=== PATIENT | male | born 1955 | race Caucasian/White ===

== ENCOUNTER 2017-11-08 08:29 | Inpatient (IN) | payer OTHER ==
[~2017-11-08] VITALS: Ht 175.3 cm; Wt 82.8 kg
[2017-11-08] VITALS (52 sets, daily range): BP systolic 83–201; BP diastolic 55–152
--- NOTE | ~2017-11-08 | CNG ---
[facility] [place] [address] CYTO-NONGYN REPORT PROCEDURE Name: BRYAN DURANT Room #: 205-P ADM IN M.R.#: [id number] Admission: 11/08/17 Date of : 51 Discharge: Report #: [id number] Path Case #: [id number] CYTOPATHOLOGY REPORT COLLECTION DATE: 11/22/2017 RECEIVED DATE: 11/26/2017 SUBMITTING PHYS: Dr. Gema Kee OTHER PHYS: Dr. João Israel CLINICAL HISTORY: Cardiac arrest, CPA with ROSC SPECIMEN(S) RECEIVED: A.Pleural fluid * * * * * * * * * * * * FINAL DIAGNOSIS: A. Pleural fluid: Atypical cells present: - Atypical mesothelial cells are present, see comment. COMMENT: Immunohistochemical stains are performed on the cell block with adequate controls. Calretinin highlights the atypical mesothelial cells. TTF-1, Napsin A, and Naman-EP4 are negative. PATHOLOGIST: Bryan Lin M.D. REPORT ELECTRONICALLY SIGNED BY: Bryan Lin M.D. DATE/TIME: 11/28/2017 09:03 * * * * * * * * * * * * GROSS PATHOLOGY: A. Pleural fluid: The specimen is submitted unfixed, labeled "Bryan Durant". Received by the Cytology Department is 17 mL of cloudy red fluid. One ThinPrep slide and a formalin fixed cell block were prepared. (mm 1.2.2018) APPLIANCE LINE ASSEMBLER(S): JUDY Elise([facility] INITIAL CPT CODE(S): A; 15922, 59647, 53937, 11827, 35971, 42178, 62685 Professional services performed by [facility] at [facility] [address] [place] [address] Technical services performed by [facility] at [address] [place] [address], [address], [place] [address]. [facility] [address] [place] [address] CYTO-NONGYN REPORT PROCEDURE Name: BRYAN DURANT Room #: 205-P ADM IN M.R.#: [id number] Admission: 11/08/17 Date of : 51 Discharge: Report #: [id number] Path Case #: [id number] [facility] [address] [place] [address], [address] [place] [address] PHONE: [phone] DIRECTOR: Mikey Alvarez M.D. * * * END OF REPORT * * *
--- NOTE | ~2017-11-08 | HC ---
[facility] [place] [address] CONSULTATION Name: GIBRAN DURANT Room #: 240-[facility] IN M.R.#: [id number] Admission: 11/08/17 Attend Phys: Kaleb Israel DO Discharge: Date of : 51 Report #: [id number] THIS REPORT FOR: //name// CC: João Israel DO DATE OF SERVICE: 11/08/2017 REFERRING PROVIDER: Kaleb Israel DO. REASON FOR CONSULTATION: Respiratory failure. CHIEF COMPLAINT: Status post arrest. HISTORY OF PRESENT ILLNESS: Our group was asked to evaluate the patient in consultation while hospitalized at [facility]. Case discussed with Dr. Gutierrez in the Emergency Department. No family available as they were driving in my initial evaluation and also from discussion with other healthcare providers, a 62-year-old male was apparently at liquor store and said he was not feeling well, collapsed, brought in by EMS after CPR by the outpatient admitting clerk at the store where he arrested, was found to have asystole, subsequently brought in and underwent prolonged resuscitation, subsequently intubated. In the interim, he has had a right IJ triple-lumen catheter inserted, has been on resuscitative care and then subsequently started on hypothermia protocol, noted to have severe lactic acidosis. No preceding event that we are aware of. EKG without findings. Currently, nonresponsive with some extensor posturing, on mechanical ventilatory support. ALLERGIES: None known. PAST MEDICAL HISTORY: 1. Possible alcohol abuse history by report. 2. History of prior spontaneous left pneumothorax with left thoracotomy in 98. 3. Hyperlipidemia. MEDICATIONS: Have included Risperdal and gabapentin in the list available. SOCIAL HISTORY: Unobtainable due to his current status. FAMILY HISTORY: Unobtainable due to his current status. REVIEW OF SYSTEMS: Unobtainable due to his current status. PHYSICAL EXAMINATION: [facility] [address] [place] [address] CONSULTATION Name: GIBRAN DURANT J Room #: 240-P [facility] IN [facility]#: [id number] Admission: 11/08/17 Attend Phys: Kaleb Israel DO Discharge: Date of : 51 Report #: [id number] VITAL SIGNS: Hypothermic, pulse 120s, respiratory rate 26, blood pressure 147/90. GENERAL: This is a middle-aged male, unresponsive on the vent. HEENT: Reveals dilated pupils, endotracheal tube in place. No oropharyngeal lesions noted. LUNGS: Coarse rhonchi. CHEST: Revealed obvious multiple rib fractures, predominantly on the right anteriorly. CARDIOVASCULAR: Regular, tachycardic. No murmurs noted. ABDOMEN: Soft, no masses. EXTREMITIES: Cool. NEUROLOGIC: Dilated pupils, extensor posturing noted, unresponsive. LABORATORY DATA: White blood cell count 12,000, hemoglobin 15, hematocrit 46, platelet count 229. Sodium is 143, potassium 2.7, chloride 106, bicarbonate 18, BUN 13, creatinine 1.7, glucose 127, ALT and AST 125 and 130. Troponin 0.12, albumin 2.5. Initial arterial blood gas after intubation, pH 7.10, pCO2 of 42, pO2 114, bicarbonate 13, lactate was 11.24 on assist control, tidal volume 550, FiO2 of 50%, PEEP of 5. Drug of abuse screen was negative. X-ray reveals left basilar atelectasis or infiltrate. Endotracheal tube in good position. Right triple-lumen IJ catheter in good position. No pneumothorax seen. IMPRESSION: 1. Status post cardiopulmonary arrest, unclear etiology. 2. Hypokalemia. 3. Respiratory failure. 4. Multiple rib fractures noted on exam, likely related to resuscitative care. RECOMMENDATIONS: 1. Hypothermia protocol. 2. Neurology consultation. 3. Cardiology consultation. 4. Bronchodilators. 5. Follow up chest radiograph in a.m. 6. Repeat arterial blood gas. 7. No antibiotics at this time. Nothing for infection noted. 8. Additional recommendations to follow. As mentioned, discussed with Dr. Gutierrez in the Emergency Department and nursing. Total critical care time 35 minutes including any procedures. <ELECTRONICALLY SIGNED> By: Oskar Interiano MD 11/14/17 2316 1356 0107 Oskar Interiano MD /nt
--- NOTE | ~2017-11-08 | EKG ---
[address] [place] [address] ELECTROCARDIOGRAM REPORT Name: GIBRAN DURANT Room #: 240-P ADM IN M.R.#: [id number] Admission: 11/08/17 Attend Phys: Kaleb Israel DO Discharge: Date of : 51 Report #: [id number] THIS REPORT FOR: //name// [facility] ED Test Date: 2017-11-08 Test Time: 08:52:53 Pat Name: GIBRAN DURANT Department: Room: 240 Gender: M Automobile Seat Cover Installer: josé miguel : 1955 Requested By: Gwen Gutierrez Order Number: [id number] MD: Jorge Martinez Measurements Intervals [place] Rate: 116 P: 94 DC: 131 QRS: -68 QRSD: 146 T: 44 QT: 370 QTc: 515 Interpretive Statements Sinus tachycardia RBBB and LAFB Resolution of prior rhythm Electronically Signed On 11-08-2017 13:32:28 DIRECTOR CARD by Jorge Martinez [email or web address] <ELECTRONICALLY SIGNED> By: Jorge Martinez MD 11/08/17 1332 0852 0852 MD EUGENE Lazo
--- NOTE | ~2017-11-08 | EKG ---
[address] [employer] [place] [address] ELECTROCARDIOGRAM REPORT Name: CARLEENGIBRAN Chin Room #: 240-P ADM IN M.R.#: [id number] Admission: 11/08/17 Attend Phys: Kaleb Israel DO Discharge: Date of : 51 Report #: [id number] THIS REPORT FOR: //name// [facility] ED Test Date: 2017-11-08 Test Time: 08:33:45 Pat Name: GIBRAN DURANT Department: Room: 240 Gender: M Bight Maker: josé miguel : 1955 Requested By: Gwen Gutierrez Order Number: [id number] MD: Jorge Martinez Measurements Intervals [place] Rate: 131 P: 99 AR: 205 QRS: 139 QRSD: 178 T: -44 QT: 390 QTc: 576 Interpretive Statements Wide complex tachycardia possible VT vs aberration Electronically Signed On 11-08-2017 13:31:38 DATA WAREHOUSING ENGINEER by Jorge Martinez [email or web address] <ELECTRONICALLY SIGNED> By: Jorge Martinez MD 11/08/17 1331 0833 0833 MD EUGENE Lazo
--- NOTE | ~2017-11-08 | HC ---
[facility] [place] [place] [address] CONSULTATION Name: GIBRAN DURANT Room #: 240-P [facility] IN ..#: [id number] Admission: 11/08/17 Attend Phys: Kaleb Israel DO Discharge: Date of : 53 Report #: [id number] THIS REPORT FOR: //name// CC: João Israel DATE OF SERVICE: 11/15/2017 HISTORY OF PRESENT ILLNESS: The patient is a 62-year-old white male, who had an out of hospital cardiac arrest while at a liquor store. He fell to the floor. He had CPR for 10 minutes initially before EMS arrived, he was noted to be in asystole. Apparently, he had chest compressions for another 35 minutes. He was defibrillated x 5. He was noted to be in V-fib for part of the time. He was evaluated and underwent an urgent coronary artery bypass graft x 1 on 11/13. He has been seen by Neurology and diagnosed with hypoxic encephalopathy. There is a question of Etoh withdrawal. He also was noted to have aspiration pneumonia, acute respiratory failure, acute renal insufficiency, electrolyte abnormalities, cardiomyopathy, insomnia with anxiety. We are seeing him in rehabilitation medicine consultation. PAST MEDICAL HISTORY: Includes spontaneous pneumothorax with left thoracotomy 07/27/1998, history of gout, elevated cholesterol, diverticulitis. HABITS: No history of tobacco or alcohol abuse. MEDICATIONS: Please see the full medication listing. ALLERGIES: No known drug allergies. SOCIAL HISTORY: Lives in a house, 2 floors with the basement. There are some steps to get in. He has 3 children that are out of town. He has some sisters that live in the area; however, there is a daughter who is a nurse, who lives out of town that is here visiting. REVIEW OF SYSTEMS: Did not offer any current complaints of chest pain, shortness of breath, or abdominal discomfort. PHYSICAL EXAMINATION: GENERAL: The patient is a 62-year-old white male, seen in the intensive care unit. He is appearing somewhat groggy. VITAL SIGNS: Temperature 97.3, pulse is 143, respirations 26, blood pressure 156/96. NEUROLOGIC: He could tell me the year and the month. He was incorrect regarding, which hospital he was at. He was 1/3 at 3 minutes as far as short term memory. Follows basic commands without difficulty, but he has a definite delay. Facies are symmetric. [facility] [address] [place] [address] CONSULTATION Name: GIBRAN DURANT J Room #: 240-P [facility] IN .R.#: [id number] Admission: 11/08/17 Attend Phys: Kaleb Israel DO Discharge: Date of : 51 Report #: [id number] EXTREMITIES: Functional range of motion of both upper extremities with strength grade 4-/5. DTRs are trace to 1. Lower extremities functional range of motion with strength grade 4-/5. DTRs are trace to 1. ASSESSMENT: A 62-year-old white male with the following problem list: 1. Hypoxic encephalopathy. 2. Out of hospital cardiac arrest. 3. Urgent coronary artery bypass grafting x 1 on 11/13. 4. Acute renal insufficiency. 5. Cardiomyopathy. 6. Arrhythmia, stable. 7. Insomnia with anxiety. 8. Dysphagia, currently moderate in severity on honey thickened liquids. 9. Aspiration pneumonia. PLAN: Therapies are evaluating. He certainly will likely warrant an acute in-hospital inpatient rehabilitation stay as he further medically stabilizes and is ready to move out of the Intensive Care Unit. Discussion was held with the patient's daughter regarding the rehabilitation needs. We will follow along with you regarding his rehab therapy issues as he further medically stabilizes. <ELECTRONICALLY SIGNED> By: Paul Delgado MD 11/21/17 1643 1230 1510 Paul Delgado MD /[facility]
--- NOTE | ~2017-11-08 | EKG ---
[place] [address] [address] [facility] [place] [address] ELECTROCARDIOGRAM REPORT Name: GIBRAN DURANT Room #: 240-P ADM IN M.R.#: [id number] Admission: 11/08/17 Attend Phys: Kaleb Israel DO Discharge: Date of : 51 Report #: [id number] THIS REPORT FOR: //name// [facility] Test Date: 2017-11-10 Test Time: 01:19:56 Pat Name: GIBRAN DURANT Department: Room: 240 P Gender: M Coordinator Of Placement: geronimo : 1955 Requested By: Ranjan Singh Order Number: [id number] MD: Jorge Martinez Measurements Intervals [place] Rate: 65 P: 25 OR: 225 QRS: -50 QRSD: 104 T: 190 QT: 533 QTc: 555 Interpretive Statements Sinus rhythm Paired ventricular premature complexes Prolonged OR interval Left anterior fascicular block Abnrm T, consider ischemia, anterolateral lds Prolonged QT interval Compared to ECG 11/09/2017 08:30:42 Ventricular premature complex(es) now present First degree AV block now present Possible ischemia now present Sinus bradycardia no longer present T-wave abnormality no longer present Electronically Signed On 11-10-2017 23:36:42 HEALTH CENTER ASSOCIATE by Jorge Martinez [email or web address] <ELECTRONICALLY SIGNED> By: Jorge Martinez MD 11/10/17 2336 8 8 Jorge Martinez MD /EPI
--- NOTE | ~2017-11-08 | EKG ---
[address] [place] [address] ELECTROCARDIOGRAM REPORT Name: GIBRAN DURANT Room #: 240-P ADM IN M.R.#: [id number] Admission: 11/08/17 Attend Phys: Kaleb Israel DO Discharge: Date of : 51 Report #: [id number] THIS REPORT FOR: //name// [facility] Test Date: 2017-11-10 Test Time: 07:44:44 Pat Name: GIBRAN DURANT Department: Room: 240 P Gender: M Phonograph Needle Tip Maker: DWAINE : 1955 Requested By: Ranjan Singh Order Number: [id number] MD: Jorge Martinez Measurements Intervals [place] Rate: 88 P: -16 MN: 217 QRS: -45 QRSD: 98 T: 160 QT: 490 QTc: 593 Interpretive Statements Sinus rhythm Borderline prolonged MN interval Left anterior fascicular block Abnormal T, consider ischemia, lateral leads Prolonged QT interval Compared to ECG 11/09/2017 08:30:42 Possible ischemia now present Sinus bradycardia no longer present T-wave abnormality still present Electronically Signed On 11-10-2017 23:37:57 RN ANESTHETIST by Jorge Martinez [email or web address] <ELECTRONICALLY SIGNED> By: Jorge Martinez MD 11/10/17 2337 0744 0744 Jorge Martinez MD /EPI
--- NOTE | ~2017-11-08 | HC ---
[facility] [place] [address] CONSULTATION Name: GIBRAN DURANT Room #: 240-P [facility] IN M.R.#: [id number] Admission: 11/08/17 Attend Phys: Kaleb Israel DO Discharge: Date of : 53 Report #: [id number] THIS REPORT FOR: //name// CC: João Israel TYPE OF REPORT: Infectious diseases consultation. REASON FOR CONSULTATION: I was asked to evaluate concerning post out of hospital arrest and respiratory failure. HISTORY OF PRESENT ILLNESS: The patient was a 62-year old with known alcohol abuse, who was at the liquor store when he fell to the ground with a witnessed arrest. Bystander CPR for 10 minutes followed by EMS resuscitative measures in the field. Asystole followed by AFib. Now on amiodarone and Levophed drip. He is intubated on cooling protocol. No further details available at this time. ALLERGIES: None known. MEDICATIONS: Reported prior to his admission were Ativan, Ambien, simvastatin, escitalopram, Cialis, p.r.n. baclofen and Belsomra daily. PAST MEDICAL HISTORY: Tonsillectomy, spontaneous pneumothorax, gout, hyperlipidemia, diverticulitis and colon polypectomy. FAMILY HISTORY: Noncontributory. SOCIAL HISTORY: Nonsmoker. REVIEW OF SYSTEMS: The patient is unable to give any details for review of systems. PHYSICAL EXAMINATION: VITAL SIGNS: He is hypothermic, on hypothermic protocol. Pulse 121, blood pressure 164/91, CVP 21 and intubated orally on the ventilator. IVs unremarkable. He had a left pretibial intraosseous IV placed. He was shivering. HEENT: Spontaneous eye openings. Pupils were dilated, minimally reactive to light. NECK: Supple. LUNGS: Clear anterolaterally. HEART: Regular. ABDOMEN: Soft and nontender. GENITOURINARY: External genitalia unremarkable with indwelling Hawkins catheter. EXTREMITIES: Unremarkable. LABORATORY STUDIES: Sodium 143, potassium 2.7, bicarbonate [address] [address] CONSULTATION Name: GIBRAN DURANT Room #: 240-P [facility] IN ..#: [id number] Admission: 11/08/17 Attend Phys: Kaleb Israel DO Discharge: Date of : 53 Report #: [id number] 1.7. AST 130, bilirubin 0.6, ALT 125, alkaline phosphatase 73 and lactate 12.8. Troponin 0.12. BNP 47. Drug screen negative. Hemoglobin 14.7; white count 12.3 and platelet count 229,000. Differential unremarkable. Urinalysis unremarkable. ABG on arrival: FiO2 of 50%, his pO2 was 114, CO2 41, pH 7.1 with a bicarbonate 13.9 and lactate 11.2. RADIOLOGICAL DATA: Chest x-ray, right IJ central line in place, NG tube in place, patchy infiltrates across the right upper lobe region, left lower lobe atelectasis and infiltrate. IMPRESSION: Out of hospital cardiac arrest. Suspect aspiration pneumonitis. No other history to suggest infection predating this. In addition, has evidence of hepatitis, which may be ischemic in nature from hypoperfusion along with acute renal failure and ongoing lactic acidosis. RECOMMENDATIONS: Recommend continuing antibiotic coverage for out of hospital aspiration, fluid resuscitation and post-code cold treatment. Cardiology followup. <ELECTRONICALLY SIGNED> By: Bi Delatorre MD 11/09/17 0929 1400 2142 Bi Delatorre MD /nt
--- NOTE | ~2017-11-08 | EEG ---
[facility] [address] [place] [address] ELECTROENCEPHALOGRAM Name: GIBRAN DURANT Room #: 240-P [facility] IN M.R.#: [id number] Admission: 11/08/17 Attend Phys: Kaleb Israel DO Discharge: Date of : 53 Report #: [id number] THIS REPORT FOR: //name// CC: João Israel DATE OF SERVICE: 11/09/2017 This patient is being evaluated post cardiac arrest. EEG was done by placing the electrodes by standard 10-20 system of electrode placement. Both referential and sequential montages were used for recording. Background activity in this patient's EEG is about 7-8 Hz and 40 microvolt. This background activity is intermixed with moderate amount of theta range slowing on both sides. A lot of artifact is present as the EEG is portable. No active epileptiform activity was noticed. IMPRESSION: Moderately abnormal electroencephalogram because it is intermixed with theta range slowing on both sides. That is a nonspecific abnormality, which can occur with encephalopathy, effect of psychotropic medication, dementia, etc. No active epileptiform activity was noticed during this record. Thank you very much for this referral. <ELECTRONICALLY SIGNED> By: Satinder Paris MD 11/13/17 1349 0920 0958 Satinder Paris MD /nt
--- NOTE | ~2017-11-08 | HC ---
[facility] [place] [address] CONSULTATION Name: GIBRAN DURANT Room #: 240-P [facility] IN .R.#: [id number] Admission: 11/08/17 Attend Phys: Kaleb Israel DO Discharge: Date of : 51 Report #: [id number] THIS REPORT FOR: //name// CC: João Israel DATE OF SERVICE: 11/08/2017 HISTORY OF PRESENT ILLNESS: This is a 62-year-old male patient whose consultation was kindly requested by Dr. Oliva to prognosticate the patient from hypoxic encephalopathy. I talked to the patient's daughter and it looks like this patient had a cardiorespiratory arrest outside the hospital in a liquor store. It looks like there was a prolonged CPR, but finally they did get the pulse back. This patient has been mostly unresponsive. He is presently on cooling protocol. He was briefly seen today and will be seen again tomorrow in more detail. REVIEW OF SYSTEMS: Positive for cardiac arrest. According to the family, he was healthy before and did not have any stroke. He does have trouble with alcohol and did have withdrawal, but that was several years ago. He lives alone, so they did not know how much alcohol he used to drink. This was his relevant 14-point review of system. PAST MEDICAL HISTORY: Negative for any stroke. SOCIAL HISTORY: He does drink alcohol, but it is not clear how much he does. PHYSICAL EXAMINATION: The patient's examination was pretty limited. He is unresponsive without any response of any kind, is intubated. His heart is stable. He is reasonably well-built individual who does not have any dysmorphic features of eyes, ears and face. His pupils are dilated and fixed, but he is getting pressors according to the nurses. IMPRESSION: This patient appeared to have hypoxic encephalopathy. How much is reversible and how much is not reversible is not clear at the moment. I discussed with the family that we need to run testing on head and we will start tomorrow when he is off the cooling protocol. He also needs a CT scan of the head, both to look for any hypoxic damage and to exclude any possibility of rare CHANNEL WORKER etiology, which can also cause cardiac arrest. I did discuss it with the family, but we will discuss further after the workup is available. [address] [address] CONSULTATION Name: GIBRAN DURANT Room #: 240-P [facility] IN M.R.#: [id number] Admission: 11/08/17 Attend Phys: Kaleb Israel DO Discharge: Date of : 51 Report #: [id number] Thank you very much for this referral and if you have any questions, please feel free to contact me. <ELECTRONICALLY SIGNED> By: Satinder Paris MD 11/09/172 2109 0021 Satinder Paris MD /nt
--- NOTE | ~2017-11-08 | CATHLAB ---
[facility] [address] [place] [address] INVASIVE PROCEDURE REPORT Name: GIBRAN DURANT Room #: 240-P [facility] IN ..#: [id number] Admission: 11/08/17 Attend Phys: Kaleb Israel, Discharge: Date of : 51 Date of Service: 11/22/17 1323 Report #: [id number] THIS REPORT FOR: //name// ADDENDUM APPROVED REPORT Patient Details Patient Status: Out-Patient Room #: The patient is a 62 year-old male Event Personnel Chi Townsend Weatherization Coordinator, Wanda Thomas CVT Monitor, Dvaid Littlejohn RN, Paul Patel Scrub Procedures Performed Left Heart Cath w/or w/o Coronaries [id number] [facility] supervision of conscious sedation Procedure Narrative The Right Groin^ was infiltrated with subcutaneous anesthesia. A PINNACLE 6FR Sheath #[id number] sheath was inserted into the RFA 6FR^. Coronary angiography was performed using coronary diagnostic catheters. The right coronary system was accessed and visualized with a JR4 catheter. The left coronary system was accessed and visualized with a JL4 catheter. The left ventricle was accessed and visualized with a PIGTAIL catheter. Left ventricular/Aortic Valve gradient assessed via catheter pullback. Left ventriculogram was performed in 30 degree projection. Closure device was deployed with a 6 Fr MYNXGRIP 6/7F #[id number]. The patient tolerated the procedure well and there were no complications associated with the procedure. There was no hematoma. Intraoperative Conscious Sedation Sedation start time: 7.38 Case end Time: 7.50 Fluoro Time: 1.20 minutes Dose: DAP 2322.97 cGycm2 300 mGy Contrast Type and Amount: Omnipaque 85 ml Coronary Angiography The patient's coronary anatomy is right dominant. Diagnostic Cath Left Main Moderate caliber vessel of normal origin bifurcates left anterior descending left circumflex mild luminal irregularities are noted but no flow-limiting lesions [facility] [address] [place] [address] INVASIVE PROCEDURE REPORT Name: GIBRAN DURANT Room #: 240-P [facility] IN ..#: [id number] Admission: 11/08/17 Attend Phys: Kaleb Israel, Discharge: Date of : 51 Date of Service: 11/22/17 1323 Report #: [id number] LAD Moderate caliber type III vessel which has a high-grade 90% ostial lesion which arises at an angle from the left main. The vessel reconstitutes itself free of high-grade disease as it tapers to the apex terminated the posterior aspect of the inferoapical wall septal diagonal branches arising in its course Diagonal 1 Small-caliber nonobstructive LAD vessel Circumflex Moderate to large caliber vessel normal origin with luminal irregularities present. First marginal branch is small caliber vessel free of high-grade disease the circumflex proper then courses posteriorly terminating 2 posterior lateral branches free of high-grade disease OM1 Small-caliber vessel free of disease OM2 Posterior wall branches of moderate caliber without significant high-grade lesions. Tortuous course OM3 Sural wall branch of moderate caliber without significant high-grade lesions having a tortuous course Right Coronary Moderate caliber vessel of normal origin. At the acute margin has a 30-40% irregularity. Continues posteriorly giving rise to posterior descending artery and posterolateral wall branches R PDA Small-caliber vessel without significant high-grade lesions noted RPLV Small to moderate caliber vessel bifurcating into the 2 posterior wall branches and what appears to be a possible AV medina branch Left Ventriculography Left Ventriculography was not performed. Hemodynamics The aortic pressure is 162/90 mmHg with a mean of 114 mmHg. The left ventricular pressure is 144/25 mmHg with a mean of mmHg. The left ventricular end diastolic pressure is 43 mmHg. Conclusion 1. Coronary disease severe single-vessel 2. Abnormal hemodynamics with elevated left ventricular end-diastolic pressures Recommendations CABG Medications Administered Aspirin (any) [facility] [address] [address] INVASIVE PROCEDURE REPORT Name: GIBRAN DURANT Room #: 240-P [facility] IN ..#: [id number] Admission: 11/08/17 Attend Phys: Kaleb Israel, Discharge: Date of : 51 Date of Service: 11/22/17 1323 Report #: [id number] Beta Charlie (any) Statin (any) <ELECTRONICALLY SIGNED> By: Chi Townsend MD 11/22/17 1323 22 22 Chi Townsend MD /INF
--- NOTE | ~2017-11-08 | CATHLAB ---
[facility] [address] [place] [address] INVASIVE PROCEDURE REPORT Name: GIBRAN DURANT Room #: 240-P [facility] IN .R.#: [id number] Admission: 11/08/17 Attend Phys: Kaleb Israel, Discharge: Date of : 51 Date of Service: 11/16/17 1217 Report #: [id number] THIS REPORT FOR: //name// CC: João Israel INDICATION: Atrial flutter. PROCEDURE: Full written and informed consent was obtained. The patient was sedated by the anesthesiologist, 20 biphasic synchronous joules were applied to the chest with prompt conversion of atrial flutter to sinus rhythm. He remained in hemodynamically, electrically and neurologically stable condition following the procedure, which was performed in the ICU. <ELECTRONICALLY SIGNED> By: Marquez Romo MD, FACC 11/25/17 0936 1217 1559 Marquez Romo MD, FACC /nt
--- NOTE | ~2017-11-08 | 2DMMODE ---
[facility] [address] [address] 2 D/M-MODE ECHOCARDIOGRAM Name: GIBRAN DURANT Room #: 240-P ADM IN ..#: [id number] Admission: 11/08/17 Attend Phys: Kaleb Israel, Discharge: Date of : 51 Date of Service: 11/16/17 1335 Report #: [id number] THIS REPORT FOR: //name// APPROVED REPORT Study performed: 11/16/2017 11:01:34 EXAM: Comprehensive 2D, Doppler, and color-flow Echocardiogram Patient Location: ICU Room #: 240 Status: routine BSA: 2.08 HR: 113 bpm BP: 105/67 mmHg Other Information Study Quality: Technically Limited Indications Effusion, Atrial Flutter Aortic Valve AoV Peak Luis E.: 1.20 m/s AO Peak Gr.: 5.73 mmHg LVOT Max P.90 mmHg LVOT Max V: 0.85 m/s Left Ventricle The left ventricle is normal size. There is normal left ventricular wall thickness. Unable to assess EF, due to poor quality of echocardiogram. This study is not technically sufficient to allow evaluation of the LV diastolic function. Right Ventricle Right ventricle is mildly dilated. Atria The left atrium size is normal. The right atrium size is normal. Aortic Valve Aortic valve is not well visualized. No aortic regurgitation is present. There is no aortic valvular stenosis. Mitral Valve The mitral valve is normal in structure. There is no mitral valve [facility] [address] [place] [address] 2 D/M-MODE ECHOCARDIOGRAM Name: GIBRAN DURANT Room #: 240-P ADM IN M.R.#: [id number] Admission: 11/08/17 Attend Phys: Kaleb Israel, Discharge: Date of : 51 Date of Service: 11/16/17 1335 Report #: [id number] regurgitation noted. No evidence of mitral valve stenosis. Tricuspid Valve The tricuspid valve is normal in structure. Unable to assess PA pressure. Pulmonic Valve The pulmonary valve is normal in structure. There is no pulmonic valvular regurgitation. Great Vessels The aortic root is normal in size. IVC is not well visualized. Pericardium There is no pericardial effusion. <Conclusion> Limited study. Technically difficult study secondary to suboptimal images and tachycardia. The left ventricle is normal size. Unable to assess EF, due to poor quality of echocardiogram. Right ventricle is mildly dilated. The left atrium size is normal. Aortic valve is not well visualized. There is no mitral valve regurgitation noted. There is no pericardial effusion. <ELECTRONICALLY SIGNED> By: Boris Estrada MD 11/16/17 1335 1335 1335 Boris Estrada MD /INF
--- NOTE | ~2017-11-08 | HC ---
[facility] [place] [address] CONSULTATION Name: GIBRAN DURANT Room #: 240-P [facility] IN ..#: [id number] Admission: 11/08/17 Attend Phys: Kaleb Israel DO Discharge: Date of : 51 Report #: [id number] THIS REPORT FOR: //name// CC: João Israel DATE OF SERVICE: 11/08/2017 REASON FOR CONSULTATION: Oliguria and acute kidney injury. HISTORY OF PRESENT ILLNESS: This is a 62-year-old male who earlier this morning had an out of hospital cardiac arrest. In reviewing records, he had 10 minutes of CPR on the scene before EMS arrived, then another 35 minutes of resuscitation with EMS before he came to the Emergency Room. Shortly after arriving in the Emergency Room, he began having cardiac rhythm and pulse. He was intubated. He has been placed in the intensive care unit on the hypothermia protocol. He has numerous metabolic abnormalities as one would expect with a prolonged cardiorespiratory arrest. We are asked to see him at this time because of some oliguria. Urine output has only been 20 may be 30 mL per hour. He has received a total of nearly 4.5 liters of IV fluids both through the original Emergency Room presentation and then with this hypothermia protocol. In reviewing his labs, he has two creatinine levels one of 1.7 and one of 1.5. The 1.5 was after he received all the fluid and is likely some dilution of the existing creatinine. He had some original hypokalemia 2.7, which was replaced up to potassium of 3.8. He has been acidotic as one would expect. He is getting hyperventilated to help correct that. In talking to the ICU nurse, he has not had further acute arrhythmias. He has had some sinus bradycardia. He has had some seizure like activity and some decerebrate posturing in addition. PAST MEDICAL HISTORY: Includes apparently a high alcohol intake. This is according to the crank hand report from his sister. He has had remote tonsillectomy as a child. He had spontaneous pneumothorax in 1997 with left thoracotomy. He has a history of gout and hyperlipidemia. He has had both tubulovillous adenoma and some additional benign polyps removed from his colon, but otherwise is remarkable. MEDICATIONS: Based upon the Emergency Room note include lorazepam, zolpidem, testosterone, escitalopram, simvastatin, Cialis, baclofen, and Belsomra. ALLERGIES: No known medical allergies. FAMILY HISTORY: Unavailable. SOCIAL HISTORY: The patient is , lives in [place], [place] [address] CONSULTATION Name: GIBRAN DURANT Room #: 240-P [facility] IN ..#: [id number] Admission: 11/08/17 Attend Phys: Kaleb Israel DO Discharge: Date of : 51 Report #: [id number] Apparently, he has a sister in the area and several adult children who are out of town. REVIEW OF SYSTEMS: Totally unavailable. PHYSICAL EXAMINATION: GENERAL: A 62-year-old male seen in the Intensive Care Unit. He is ashen in appearance. He has received his hypothermia protocol and is appropriately cool to the touch. VITAL SIGNS: Blood pressure has been highly variable. It is currently at 109/86. He has had some systolic pressures as high as 164 with a diastolic of 90, heart rate previously was high in the 120s, but is now bradycardic in the 50 range with a sinus bradycardia, oxygen saturation 100% on FiO2 of 0.50. He is hypothermic down to 33 degrees centigrade. HEENT: Shows pupils at 5 mm and unresponsive. Sclerae are nonicteric. He is orally intubated. NECK: Supple. No JVD, no bruits. CHEST: Shows some wheezes and rhonchi on the right, a few on the left. HEART: Has distant heart sounds, is bradycardic. ABDOMEN: Has absent bowel sounds. Abdomen is not distended, has no organomegaly or masses palpable. EXTREMITIES: Shows cool extremities, both upper and lower. No peripheral edema noted. He has 1+ peripheral pulses. I looked at two different chest x-rays which shows some chronic scarring from his prior left thoracotomy and pneumothorax. He is intubated. LABORATORY DATA: He had some original labs on presentation in the ER, but these are the most recent labs timed at 1445 and include sodium 141, potassium 3.8, chloride 108, bicarbonate 17, BUN 18, creatinine 1.5, calcium 7.7, phosphorus 4.6, magnesium 1.7. Troponin 7.08 and from earlier AST of 130, ALT of 125, total bilirubin 0.6, total protein 5.4, albumin 2.5. Lactate was originally elevated at 12.8, is down to 5.5. Alcohol was undetectably low on presentation. Drug screen was negative. White count 16.0, hemoglobin 13.8, hematocrit 41.9, platelets 198,000. Urinalysis: Specific gravity 1.020, pH 5.5, trace protein. Negative dipstick, otherwise. Initial blood gas pH 7.10, pCO2 of 41, pO2 of 114, lactate 11.2 on that and then less than an hour ago, pH 7.34, pCO2 of 21.8, pO2 of 208, lactate down to 4.6. ASSESSMENT: 1. Out of the hospital cardiorespiratory arrest. He had a very long resuscitation of at least 45 minutes documented; he now has a sinus bradycardia. He is on the hypothermia protocol. He is holding his blood pressure fairly well, although those pressures are labile and somewhat unusual pulse pressure. Hemodynamically though, he is doing a bit better than one might expect. As expected, he has a bump in his troponin consistent with coronary ischemia with a [facility] [address] [place] [address] CONSULTATION Name: GIBRAN DURANT J Room #: 240-P [facility] IN [facility].#: [id number] Admission: 11/08/17 Attend Phys: Kaleb Israel DO Discharge: Date of : 51 Report #: [id number] prolonged arrest. Other parameters included metabolic acidosis again with his under perfusion and low blood pressure for a prolonged period of time. 2. Oliguria with acute kidney injury. He is actually a bit on the foreside from a volume standpoint. Blood pressure is adequate. His CVP is high in the 20-21 range. We will give him some Lasix to see if we can stimulate urine output. In the interim, we will get a spot urine sodium and creatinine sent to the lab prior to the furosemide. 3. Metabolic acidosis with high lactate related to his hypotension and hypoperfusion. It is actually coming down with current blood pressure. I do not think he is septic, but he has been started empirically on some Zosyn. 4. Reported high alcohol intake; although, his alcohol level was negative at the time of presentation. PLAN: 1. Continued hemodynamic support. 2. We will try some Lasix to institute some diuresis and increase urine output. 3. Followup on his labs on a regular basis. 4. Check fractional excretion of sodium. 5. We will continue to follow along the care of this patient. <ELECTRONICALLY SIGNED> By: Samir Solomon MD 11/11/17 0756 1628 0133 Samir Solomon MD /nt
--- NOTE | ~2017-11-08 | O ---
[facility] [place] [address] OPERATIVE REPORT Name: BRYAN DURANT Room #: 205-P [facility] IN ..#: [id number] Admission: 11/08/17 Attend Phys: Kaleb Israel, Discharge: 11/29/17 Date of : 51 Report #: [id number] THIS REPORT FOR: //name// CC: João Israel DATE OF SERVICE: 11/13/2017 PREOPERATIVE DIAGNOSES: 1. Coronary artery disease. 2. Out of hospital cardiac arrest. 3. Moderate to severe cardiomyopathy. FINAL DIAGNOSES: 1. Coronary artery disease. 2. Out of hospital cardiac arrest. 3. Moderate to severe cardiomyopathy. OPERATIVE PROCEDURE PERFORMED: Coronary artery bypass grafting times 1 with saphenous vein graft to LAD. SURGEON: Bryan Hernandez MD SHELL PRESS OPERATOR: Rachael Torres. ANESTHESIA: General. OPERATIVE INDICATIONS: The patient is a 62-year-old male who has been admitted back on the after an out of hospital arrest that was witnessed with prompt CPR, the patient had several episodes of arrest and CPR and defibrillation. He underwent a left heart catheterization on the , after undergoing hypothermia protocol. The study revealed evidence of single-vessel coronary artery disease involving the ostium of the LAD, which was a 90% stenosis. It was felt that he was not a great candidate for long-term for stenting of this vessel due to its proximal nature in the LAD, he thus brought to the operating room now for coronary artery bypass grafting after informed consent has been obtained and there have been extensive conversations with the family. OPERATIVE SUMMARY: The patient was brought to the operating room and placed on the OR table in supine position. After anesthesia was induced via the general endotracheal route and monitoring lines have been positioned, the patient was prepped and draped in sterile fashion with chlorhexidine. A median sternotomy incision was made. We inadvertently performed a sternotomy trailing off to the patient's right side. Extensive edema and hematoma in the subcutaneous tissues complicated exposure of appropriate anatomy. Once hemostasis was achieved, we placed a sternal retractor and take down the left internal mammary artery. [facility] [address] [place] [address] OPERATIVE REPORT Name: BRYAN DURANT Room #: 205-P [facility] IN M.R.#: [id number] Admission: 11/08/17 Attend Phys: Kaleb Israel DO Discharge: 11/29/17 Date of : 51 Report #: [id number] Again, extensive hemorrhage, ecchymosis, hematoma was noted on the undersurface of the sternum from prior CPR. We began taking down the mammary, but this was complicated by oozing from blood when incising the pleural envelope. Ultimately, the internal mammary artery was injured and required ligation with clips. I then went down to the left leg and exposed the vein at the ankle and harvested a segment of vein using skip incisions. I then returned to the chest, opened the pericardium. We found chronic adhesions of the pericardium to the heart. We were able to take these pericardiums down with blunt dissection as well as using electrocautery. I created a pericardial well, systemically anticoagulated the patient with heparin, cannulae were placed in ascending aorta and the right atrium. An antegrade cardioplegic cannula was positioned and cardiopulmonary bypass was begun. The aortic crossclamp was placed, the heart was arrested with cold antegrade cardioplegia and this was augmented with topical ice slush. Diastolic arrest was achieved and maintained throughout this operation with intermittent doses of cold antegrade cardioplegia. We first opened up the LAD in the proximal aspect of its mid segment. It is a large vessel at this site, greater than 2 mm in size, a 1.5 mm probe was passed easily distally. A distal anastomosis was carried out in end-to-side fashion with 7-0 Prolene. We gave cardioplegia down the LAD and then we brought the LAD around, measured at the appropriate length and performed a proximal anastomosis to the ascending aorta with 6-0 Prolene after a 4.8 punch aortotomy was created. Under low flow conditions, the aorta crossclamp was released. Vein graft was deaired. The patient was rewarmed to 37-degree centigrade. Three successive doses of calcium and a single dose of magnesium were given every 3-5 minute intervals. Atrial and ventricular pacing wires were placed; however, the patient spontaneously returned to normal sinus rhythm. After a suitable period of reperfusion, the lungs were reinflated. The patient was weaned from cardiopulmonary bypass without inotropic support. Protamine was given to reverse the heparin, decannulation was effected. Once satisfactory hemostasis was achieved, we placed two 32-Portuguese chest tubes in the anterior mediastinum, brought them out through separate stab incisions. The sternum was closed with #7 wire, the fascia, subcutaneous and skin were closed in multiple layers with absorbable suture. A Robicsek weave was required. Cardiopulmonary bypass time was listed at 53 minutes, cross clamp time 32 minutes. By: 1007 1129 /nt
--- NOTE | ~2017-11-08 | EKG ---
[address] [place] [address] ELECTROCARDIOGRAM REPORT Name: GIBRAN DURANT Room #: 240-P ADM IN M.R.#: [id number] Admission: 11/08/17 Attend Phys: Kaleb Israel DO Discharge: Date of : 51 Report #: [id number] THIS REPORT FOR: //name// [facility] Test Date: 2017-11-13 Test Time: 16:29:29 Pat Name: GIBRAN DURANT Department: Room: 240 P Gender: M Webbing Inspector: Ada STEVEN : 1955 Requested By: Chante Guerra Order Number: [id number] MD: Marquez Romo Measurements Intervals Lavina Rate: 69 P: 52 AR: 193 QRS: -40 QRSD: 91 T: QT: 505 QTc: 541 Interpretive Statements Sinus rhythm Left axis deviation Nonspecific T abnrm, anterolateral leads Prolonged QT interval Compared to ECG 11/10/2017 07:44:44 ST and T wave abnormality is less pronounced Electronically Signed On 11-14-2017 8:18:27 PHYSICAL CHEMIST by Marquez Romo [email or web address] <ELECTRONICALLY SIGNED> By: Marquez Romo MD, [facility] 11/14/17 0818 1629 1629 Marquez Romo MD, [facility] /EPI
--- NOTE | ~2017-11-08 | 2DMMODE ---
[facility] [address] [place] [address] 2 D/M-MODE ECHOCARDIOGRAM Name: WINGGIBRAN ALVARADO Room #: 240-P [facility] IN ..#: [id number] Admission: 11/08/17 Attend Phys: Kaleb Israel, Discharge: Date of : 51 Date of Service: 11/22/17 1418 Report #: [id number] THIS REPORT FOR: //name// APPROVED REPORT Study performed: 11/22/2017 12:15:28 EXAM: Limited 2D, Doppler, and color-flow Echocardiogram Patient Location: ICU Room #: 240 Status: routine BSA: 2.09 HR: 90 bpm BP: 157/94 mmHg Rhythm: NSR Other Information Study Quality: Adequate Technically limited study due to limited mobility and cooperation, post operative dressings. Indications LV function and PA pressures. Patient is status post cardiac arrest (11/08/17) and CABG (11/13/17). 2D Dimensions LVEF(%): 57.78 (>50%) IVSd: 9.57 (7-11mm) LVDd: 49.04 mm PWd: 9.45 (7-11mm) LVDs: 34.08 (25-40mm) Arzola's LVEF: 57.78 % Tricuspid Valve TR Peak Luis E.: 2.92 m/s RAP Estimate: 10.00 mmHg TR Peak Gr.: 34.01 mmHg PA Pressure: 44.00 mmHg Left Ventricle The left ventricle is normal size. Paradoxical septal motion consistent with post-operative state. There is normal left ventricular wall thickness. Left ventricular systolic function is normal. LVEF is 50-55%. Right Ventricle The right ventricle is normal size. Right ventricle is [facility] [address] [place] [address] 2 D/M-MODE ECHOCARDIOGRAM Name: CARLEENNI Room #: 240-[facility] IN ..#: [id number] Admission: 11/08/17 Attend Phys: Kaleb Israel, Discharge: Date of : 51 Date of Service: 11/22/17 1418 Report #: [id number] hypokinetic. Atria The left atrium size is normal. The right atrium size is normal. Aortic Valve The aortic valve is normal in structure. No aortic regurgitation is present. There is no aortic valvular stenosis. Mitral Valve The mitral valve is normal in structure. There is no mitral valve regurgitation noted. Tricuspid Valve The tricuspid valve is normal in structure. Trace tricuspid regurgitation. Estimated PAP is 40-45mmHg. Great Vessels IVC is dilated and collapses <50% with inspiration. Pericardium There is no pericardial effusion. Right pleural effusion noted. <Conclusion> The left ventricle is normal size. Paradoxical septal motion consistent with post-operative state. LVEF is 50-55%. The right ventricle is normal size. The left atrium size is normal. The right atrium size is normal. The aortic valve is normal in structure. The mitral valve is normal in structure. The tricuspid valve is normal in structure. Trace tricuspid regurgitation. Estimated PAP is 40-45mmHg. There is no pericardial effusion. Right pleural effusion noted. <ELECTRONICALLY SIGNED> By: Chi Townsend MD 11/22/17 1418 1418 1418 Chi Townsend MD /INF
--- NOTE | ~2017-11-08 | 2DMMODE ---
[facility] [address] [place] [address] 2 D/M-MODE ECHOCARDIOGRAM Name: WINGGIBRAN ALVARADO Room #: 240-P [facility] IN ..#: [id number] Admission: 11/08/17 Attend Phys: Kaleb Israel, Discharge: Date of : 51 Date of Service: 11/08/17 1623 Report #: [id number] THIS REPORT FOR: //name// APPROVED REPORT Study performed: 11/08/2017 14:35:24 EXAM: Comprehensive 2D, Doppler, and color-flow Echocardiogram Patient Location: ICU Room #: 240 Status: routine BSA: 1.93 HR: 61 bpm BP: 164/91 mmHg Rhythm: NSR Other Information Study Quality: Good/Patient in ICU on vent. Indications Status post cardiac arrest. 2D Dimensions RVDd: 36.55 mm LVEF(%): 37.10 (>50%) IVSd: 11.37 (7-11mm) LVOT Diam: 20.53 (18-24mm) LVDd: 50.09 mm PWd: 10.73 (7-11mm) Ascending Ao: 34.41 (22-36mm) LVDs: 41.11 (25-40mm) Aortic Root: 35.02 mm Arzola's LVEF: 37.10 % Volumes Left Atrial Volume (Systole) Single Plane 4CH: 60.46 mL Single Plane 2CH: 59.17 mL LA ESV Index: 33.00 mL/m2 Aortic Valve AoV Peak Luis E.: 0.54 m/s AO Peak Gr.: 1.16 mmHg LVOT Max P.75 mmHg LVOT Max V: 0.43 m/s ANNABEL Vmax: 2.66 cm2 Mitral Valve E/A Ratio: 0.7 MV Decel. Time: 160.52 ms [facility] [place] [address] 2 D/M-MODE ECHOCARDIOGRAM Name: GIBRAN DURANT Room #: 240-P [facility] IN ..#: [id number] Admission: 11/08/17 Attend Phys: Kaleb Israel, Discharge: Date of : 51 Date of Service: 11/08/17 1623 Report #: [id number] MV E Max Luis E.: 0.42 m/s MV A Luis E.: 0.58 m/s MV PHT: 46.55 ms IVRT: 175.32 ms Pulmonary Valve PV Peak Luis E.: 0.67 m/s PV Peak Gr.: 1.80 mmHg Tricuspid Valve TR Peak Luis E.: 2.69 m/s RAP Estimate: 10.00 mmHg TR Peak Gr.: 29.05 mmHg PA Pressure: 39.00 mmHg Left Ventricle The left ventricle is normal size. There is normal left ventricular wall thickness. Left ventricular systolic function is severely decreased. Severe hypokinesis of septum, anterolateral wall, and apex. LVEF 25%. Mild diastolic dysfunction is present (impaired relaxation pattern). Right Ventricle The right ventricle is normal size. Right ventricle is moderately hypokinetic. Atria Left atrium is mildly dilated. The right atrium size is normal. Aortic Valve The aortic valve is mildly sclerotic No aortic regurgitation is present. There is no aortic valvular stenosis. Mitral Valve The mitral valve is normal in structure. Mild mitral regurgitation. Tricuspid Valve The tricuspid valve is normal in structure. Trace to mild tricuspid regurgitation. Estimated PAP is 40mmHg. Pulmonic Valve The pulmonary valve is normal in structure. Trace pulmonic regurgitation. Great Vessels The aortic root is normal in size. The ascending aorta is normal in [address] [address] 2 D/M-MODE ECHOCARDIOGRAM Name: GIBRAN DURANT Room #: 240-P [facility] IN ..#: [id number] Admission: 11/08/17 Attend Phys: Kaleb Israel, Discharge: Date of : 51 Date of Service: 11/08/17 1623 Report #: [id number] size. IVC is normal in size and collapses <50% with inspiration. Pericardium There is no pericardial effusion. <Conclusion> Left ventricular systolic function is severely decreased. Severe hypokinesis of septum, anterolateral wall, and apex. LVEF 25%. Left atrium is mildly dilated. The aortic valve is mildly sclerotic. No aortic regurgitation or stenosis The mitral valve is normal in structure. Mild mitral regurgitation. Pulmonary artery pressure of 35mm Hg There is no pericardial effusion. <ELECTRONICALLY SIGNED> By: Marquez Romo MD, FACC 11/08/17 1623 1623 162 Marquez Romo MD, FACC /INF
--- NOTE | ~2017-11-08 | EKG ---
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 : 1955 Requested By: Bryan Hernandez Order Number: [id number] MD: Boris Estrada Measurements Intervals [place] Rate: 132 P: DC: QRS: -39 QRSD: 101 T: 169 QT: 333 QTc: 494 Interpretive Statements Atrial flutter with predominant 2:1 AV block Incomplete RBBB and LAFB Repol abnrm suggests ischemia, lateral leads Compared to ECG 11/14/2017 06:51:40 2:1 AV block now present Left anterior fascicular block now present Incomplete right bundle-branch block now present Possible ischemia now present Electronically Signed On 11-16-2017 12:33:23 [employer] by Boris Estrada [email or web address] <ELECTRONICALLY SIGNED> By: Boris Estrada MD 11/16/17 1233 1026 1026 Boris Estrada MD /EPI
--- NOTE | ~2017-11-08 | 2DMMODE ---
[address] [address] 2 D/M-MODE ECHOCARDIOGRAM Name: GIBRAN DURANT Room #: 240-P ADM IN M.R.#: [id number] Admission: 11/08/17 Attend Phys: Kaleb Israel, Discharge: Date of : 51 Date of Service: 11/09/17 1232 Report #: [id number] THIS REPORT FOR: //name// APPROVED REPORT Study performed: 11/09/2017 09:48:22 EXAM: Comprehensive 2D Echocardiogram Patient Location: ICU Room #: 240 Status: on-call BSA: 1.93 HR: 81 bpm BP: 207/101 mmHg Other Information Study Quality: Good Indications SP code, RO effusion. Left Ventricle The left ventricle is normal size. There is normal left ventricular wall thickness. Left ventricular ejection fraction is severely decreased. LVEF is 25-30%. Right Ventricle The right ventricle is normal size. Right ventricle is moderately hypokinetic. Atria Left atrium is dilated. Right atrium is dilated. Aortic Valve The aortic valve is normal in structure. Mitral Valve The mitral valve is normal in structure. Tricuspid Valve The tricuspid valve is normal in structure. Pulmonic Valve Pulmonic valve is not well visualized. Great Vessels [address] [address] 2 D/M-MODE ECHOCARDIOGRAM Name: GIBRAN DURANT Room #: 240-P ADM IN M.R.#: [id number] Admission: 11/08/17 Attend Phys: Kaleb Israel, Discharge: Date of : 51 Date of Service: 11/09/17 1232 Report #: [id number] The aortic root is normal in size. IVC is not well visualized. Pericardium There is no pericardial effusion. <Conclusion> Left ventricular ejection fraction is severely decreased. LVEF is 25-30%. There is no pericardial effusion. <ELECTRONICALLY SIGNED> By: Chi Townsend MD 11/09/17 1232 123 123 Chi Townsend MD /INF
--- NOTE | ~2017-11-08 | HC ---
[facility] [place] [place] [address] CONSULTATION Name: GIBRAN DURANT Room #: 240-P [facility] IN M.R.#: [id number] Admission: 11/08/17 Attend Phys: Kaleb Israel DO Discharge: Date of : 51 Report #: [id number] THIS REPORT FOR: //name// CC: João Israel DATE OF SERVICE: 11/15/2017 NEUROBEHAVIORAL STATUS EXAM: ATTENDING PHYSICIAN: Kaleb Israel DO. HYDROTECHNICAL SPECIALIST: Francisco Mckeon, PhD. CLINICAL PRESENTATION: The patient is a 62-year-old male admitted to the [facility] in ICU following a cardiac rest. He was reported to have been at a liquor store when he fell to the floor and required CPR. The patient was placed on a hypothermia protocol. He subsequently underwent an urgent coronary artery bypass graft x 1. The patient has been seen by Neurology and diagnosed with hypoxic encephalopathy. Additional concern in regard to alcohol withdrawal was noted. PAST MEDICAL HISTORY: Includes a spontaneous pneumothorax, gout, elevated cholesterol, diverticulitis, anxiety disorder and alcohol abuse. A complete description of his medical condition, history and medications can be found in his medical record. Neuropsychological consultation was requested to provide assistance in the assessment of cognitive and emotional status and to provide recommendations and services. Prior to this most recent medical event, he was living independently in his own home. The patient has 3 children. He is from a family with three sisters and one brother. One brother is . 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 He is a college graduate. As indicated, the patient has a longstanding history of alcohol abuse along with prior treatment for anxiety, depression and alcohol cessation. TECHNIQUES UTILIZED: Clinical interview, review of medical records, staff consultation and behavioral observation, mini mental status exam 2 subtests, family interview -- children. EXAMINATION FINDINGS: The patient was alert and responsive during the assessment. He was unable to describe the reason for his hospitalization. There is no evidence of aphasia. His thoughts are logical and goal oriented. He does not report auditory or visual hallucinations. There is no report of suicidal ideation. The patient has had intermittent periods of anxiety and agitation during his recovery. [facility] [address] [place] [address] CONSULTATION Name: GIBRAN DURANT Room #: 240-P [facility] IN M.R.#: [id number] Admission: 11/08/17 Attend Phys: Kaleb Israel DO Discharge: Date of : 51 Report #: [id number] intermittent periods of delirium marked by disorientation to place and reason for treatment. Disorientation is described as heightened with use of morphine. During this current mental status exam, the patient was oriented to year and place. Sustained concentration and attention necessary for registration and initial encoding is impaired. He requires increased time for auditory and visual processing. Inconsistent tolerance for frustration will contribute to intermittent agiation. Naming, ability to follow a 3-step auditory command and a single written command was within normal limits. This type of presentation suggests intermittent delirium with agitation as part of his recovery. Narcotic medication appears to be contributing to agitation. Impairment in neurocognitive functioning is likely due to hypoxia from cardiac arrest. History of anxiety and alcohol abuse will contribute to difficulty in adjustment. DIAGNOSTIC IMPRESSION: Delirium, mixed level of activity -- acute. 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 Alcohol use disorder by history -- moderate to severe. Generalized anxiety disorder. RECOMMENDATIONS: Reduce as much as medically appropriate narcotic medication. The use of reassurance and breathing strategies to assist in the management of his anxiety. The patient will also benefit from frequent orientation. Environmental stimulation should be managed to the extent of reducing stimulation when agitated and restless. Redirect attention, orientation and reassurance will assist his ablity to manage frustration and anxiety. He will benefit from a comprehensive rehabilitation program and continued assessment of neurocognitive functioning. His family is very supportive and an excellent resource for him during his recovery. Thank you very much for me to provide the consultation on this patient. <ELECTRONICALLY SIGNED> By: Francisco Mckeon, PhD 11/16/17 1139 1815 0904 Francisco Mckeon, PhD /nt
--- NOTE | ~2017-11-08 | EKG ---
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 Professor: didi : 1955 Requested By: Michelle Burgos Order Number: [id number] MD: Marquez Romo Measurements Intervals [place] Rate: 58 P: 57 NE: 182 QRS: -51 QRSD: 92 T: -19 QT: 540 QTc: 531 Interpretive Statements Sinus bradycardia Left anterior fascicular block Abnormal R-wave progression, late transition Nonspecific T abnormalities, inferior leads Prolonged QT interval Compared to ECG 11/08/2017 08:52:53 sinus bradycardia is now present Prolonged QT interval now present right bundle branch block is no longer present Electronically Signed On 11-09-2017 15:57:13 [employer] by Marquez Romo [email or web address] <ELECTRONICALLY SIGNED> By: Marquez Romo MD, FACC 11/09/17 1557 9 9 Marquez Romo MD, FACC /EPI
--- NOTE | ~2017-11-08 | EKG ---
[address] [place] [employer] 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 : 1955 Requested By: Chante Guerra Order Number: [id number] MD: Marquez Romo Measurements Intervals [place] Rate: 84 P: 53 HI: 186 QRS: -35 QRSD: 87 T: 35 QT: 471 QTc: 557 Interpretive Statements Sinus rhythm Left axis deviation Nonspecific T wave abnormality Prolonged QT interval Compared to ECG 11/10/2017 07:44:44 Nonspecific change in the T wave abnormality Electronically Signed On 11-14-2017 8:25:50 HOT CELL TECHNICIAN by Marquez Romo [email or web address] <ELECTRONICALLY SIGNED> By: Marquez Romo MD, [facility] 11/14/17 0825 0651 0651 Marquez Romo MD, [facility] /EPI
--- NOTE | ~2017-11-08 | O ---
[facility] [place] [address] OPERATIVE REPORT Name: CARLEENBRYAN Chin Room #: 205-P [facility] IN M.R.#: [id number] Admission: 11/08/17 Attend Phys: Kaleb Israel, Discharge: 11/29/17 Date of : 51 Report #: [id number] THIS REPORT FOR: //name// CC: João Israel DATE OF SERVICE: 11/13/2017 PREOPERATIVE DIAGNOSES: Coronary artery disease, out of hospital cardiac arrest, moderate cardiomyopathy. FINAL DIAGNOSES: Coronary artery disease, out of hospital cardiac arrest, moderate cardiomyopathy. OPERATIVE PROCEDURE PERFORMED: Urgent coronary artery bypass grafting x 1 with saphenous vein graft to LAD. SURGEON: Bryan Hernandez MD WEBMASTER: Rachael Torres. ANESTHESIA: General. OPERATIVE INDICATIONS: The patient is a 62-year-old male who was brought to the hospital after cardiac arrest experienced out of hospital. The patient survived multiple episodes of ventricular fibrillation arrest that necessitated defibrillation and external chest compressions. The patient survived through the period of hypothermic protocol and underwent left heart catheterization demonstrating single vessel coronary artery disease involving the ostium of the LAD. It was felt not to be a good candidate for stent placement as there was no good proximal landing zone. Therefore, the patient is brought to the operating room now for coronary artery bypass grafting. OPERATIVE SUMMARY: The patient brought into the operating room and placed on the OR table in supine position. After anesthesia was induced via the general endotracheal route and monitoring lines being positioned, the patient was prepped and draped in sterile fashion with chlorhexidine. A median sternotomy incision was made. The lower aspect of this sternotomy incision trailed off on to the right ribs. There was extensive ecchymosis, hemorrhage and edema in the soft tissues. Once hemostasis was obtained, we positioned the sternum for taking down the internal mammary artery. I found that extensive ecchymosis and hematoma surrounded the sternum obscuring the normal anatomy of the left internal mammary artery. I attempted to take down the mammary artery, but ran into significant bleeding and ultimately the internal mammary artery was compromised and required ligation to control bleeding. We then harvested a [facility] [address] [place] [address] OPERATIVE REPORT Name: BRYAN DURANT Room #: 205-P DIS IN M.R.#: [id number] Admission: 11/08/17 Attend Phys: Kaleb Israel DO Discharge: 11/29/17 Date of : 51 Report #: [id number] segment of saphenous vein from the left leg at the ankle. The sternal retractor was placed. Pericardium was opened and a pericardial well was created. The patient was given systemic dose of heparin. Cannulae were placed in ascending aorta and the right atrium. An antegrade cardioplegic cannula was positioned and cardiopulmonary bypass was begun. Under low flow conditions, the aorta was cross clamped, the heart was arrested with at least 1 liter of cold antegrade cardioplegia. This was augmented with topical ice slush. Diastolic arrest was achieved and maintained throughout this operation with intermittent doses of cold antegrade cardioplegia as well as cardioplegia given down the graft and topical ice slush. With the heart arrested, we first opened up the LAD. It is a large vessel. We were able to open it in its proximal segment. Anastomosis was carried out in end-to-side fashion with 7-0 Prolene and then a proximal fashion to the ascending aorta with 6-0 Prolene after 4.8 punch aortotomy was created. We then gave warmed cardioplegia antegrade. Care was taken to deair the ascending aorta and the vein graft. Under low flow conditions, the aortic crossclamp was released to begin the period of reperfusion. The patient was rewarmed to 37 degree centigrade. Three successive doses of calcium and a single dose of magnesium were given over 3-5 minute intervals. Atrial and ventricular pacing wires were placed and a suitable rhythm resumed. After a suitable period of reperfusion, the lungs were reinflated. The patient was weaned from cardiopulmonary bypass without inotropic support. Protamine was given to reverse the heparin, decannulation was effected. Once satisfactory hemostasis was achieved, we placed two 32-Ukrainian chest tubes in the anterior mediastinum and brought them out through separate stab incisions. The sternum was closed with #7 wire. The fascia, subcutaneous and skin were closed in multiple layers with absorbable suture. It should be noted that closure of the sternum necessitated placement of a Robicsek weave, wire on the patient's right side. <ELECTRONICALLY SIGNED> By: Bryan Hernandez MD 12/27/17 1906 1705 1728 Bryan Hernandez MD /nt
[~2017-11-08 08:29] MED LIST: ATIVAN1 MG PO; BACLOFEN20 MG PO; BELSOMRA15 MG PO; CIALIS5 MG PO; ESCITALOPRAM OX20 MG PO; HYDROCODONE-AP1 EAC6 PO; SIMVASTATIN80 MG PO; TESTOSTERO200 MG/1 M IM; ZOLPIDEM TART12.5 MG PO
[2017-11-08 08:47] LABS: POC CA IONIZED 4.2 mg/dL (4.5-5.3); POC CREATININE 1.7 mg/dL (0.6-1.3); POC HEMOGLOBIN 17.3 g/dL (14.0-18.0); POC POTASSIUM 3.3 mmol/L (3.5-5.1)
[2017-11-08 08:53] LABS: ABSOLUTE NEUTROPHILS 7.1 thou/uL (1.4-8.2); BASOPHILS 0.7 % (0.0-2.0); EOSINOPHILS 0.6 % (0.0-3.0); HEMATOCRIT 45.5 % (42.0-52.0); HEMOGLOBIN 14.7 gm/dL (14.0-18.0); LYMPHOCYTES 36.8 % (24.0-44.0); MCHC 32.4 g/dL (28.0-37.0); MCV 92.8 fL (80.0-100.0); MONOCYTES 4.1 % (1.0-8.0); PLATELET COUNT 229 thou/uL (150-400); POLYS 57.8 % (36.0-66.0); RBC 4.91 mil/uL (4.50-6.00); RDW 14.2 % (10.5-14.5); WBC 12.3 thou/uL (4.0-11.0)
[2017-11-08 09:03] LABS: CALCIUM 8.1 mg/dL (8.5-10.1); CREATININE 1.7 mg/dL (0.7-1.3)
[2017-11-08 09:04] LABS: POTASSIUM 2.7 mmol/L (3.5-5.1)
[2017-11-08 09:07] LABS: BE(vivo) -16.6 mmol/L (-2 to +3); HCO3 12.6 mmol/L (22.0-26.0); PCO2 41.5 mmHg (35.0-45.0); PO2 114.4 mmHg (80.0-100.0); sO2 96.6 % (92.0-98.0)
[2017-11-08 09:12] LABS: ALBUMIN 2.5 g/dL (3.4-5.0); DIRECT BILIRUBIN 0.1 mg/dL (<0.1-0.3); TOTAL BILIRUBIN 0.6 mg/dL (<0.1-1.0); TOTAL PROTEIN 5.4 g/dL (6.4-8.2); TROPONIN-I 0.12 ng/mL (<0.06)
[2017-11-08 09:24] LABS: URINE BILIRUBIN NEGATIVE (Negative); URINE BLOOD TRACE (Negative); URINE CLARITY CLEAR; URINE COLOR YELLOW; URINE GLUCOSE-RANDOM* NEGATIVE (Negative); URINE KETONES NEGATIVE (Negative); URINE LEUKOCYTES NEGATIVE (Negative); URINE NITRITE NEGATIVE (Negative); URINE PROTEIN (DIPSTICK) TRACE (Negative); URINE UROBILINOGEN 0.2 E.U./dl (0.2-1.0)
[2017-11-08 09:31] LABS: AMP/METHAMP Negative (Negative); BARBITURATES Negative (Negative); BENZODIAZEPINES Negative (Negative); COCAINE Negative (Negative); METHADONE Negative (Negative); OPIATES Negative (Negative); PCP Negative (Negative)
[2017-11-08 09:50] LABS: INR 1.1
[2017-11-08 14:53] LABS: HEMATOCRIT 41.9 % (42.0-52.0); HEMOGLOBIN 13.8 gm/dL (14.0-18.0); MCH 29.7 pg (26.0-34.0); MCHC 32.9 g/dL (28.0-37.0); MCV 90.3 fL (80.0-100.0); RBC 4.65 mil/uL (4.50-6.00); RDW 14.5 % (10.5-14.5)
[2017-11-08 15:05] LABS: CALCIUM 7.7 mg/dL (8.5-10.1); CREATININE 1.5 mg/dL (0.7-1.3); MAGNESIUM 1.7 mg/dL (1.8-2.4); PHOSPHORUS 4.6 mg/dL (2.5-4.9)
[2017-11-08 15:06] LABS: POTASSIUM 3.8 mmol/L (3.5-5.1)
[2017-11-08 15:08] LABS: INR 1.2; PROTIME 11.6 Seconds (9.3-11.4)
[2017-11-08 15:11] LABS: TROPONIN-I 7.08 ng/mL (<0.06)
[2017-11-08 15:25] LABS: BE(vivo) -11.8 mmol/L (-2 to +3); HCO3 11.6 mmol/L (22.0-26.0); PO2 208.8 mmHg (80.0-100.0); pH 7.343 (7.360-7.450); sO2 99.4 % (92.0-98.0)
[2017-11-08 15:26] LABS: PCO2 21.8 mmHg (35.0-45.0)
[2017-11-08 16:55] LABS: URINE CREATININE-RANDOM* 84.6 mg/dL
[2017-11-08 23:30] LABS: HEMATOCRIT 43.3 % (42.0-52.0); HEMOGLOBIN 14.7 gm/dL (14.0-18.0); MCH 30.2 pg (26.0-34.0); MCHC 33.9 g/dL (28.0-37.0); MCV 89.2 fL (80.0-100.0); PLATELET COUNT 220 thou/uL (150-400); RBC 4.86 mil/uL (4.50-6.00); RDW 14.3 % (10.5-14.5); WBC 11.5 thou/uL (4.0-11.0)
[2017-11-08 23:43] LABS: CALCIUM 8.2 mg/dL (8.5-10.1); CREATININE 1.6 mg/dL (0.7-1.3); MAGNESIUM 2.7 mg/dL (1.8-2.4); PHOSPHORUS 1.6 mg/dL (2.5-4.9); POTASSIUM 3.4 mmol/L (3.5-5.1)
[2017-11-08 23:45] LABS: APTT 26.9 Seconds (24.5-32.8); INR 1.2; PROTIME 11.8 Seconds (9.3-11.4)
[2017-11-08 23:46] LABS: TROPONIN-I 6.4 ng/mL (<0.06)
[2017-11-09] VITALS (86 sets, daily range): BP systolic 52–215; BP diastolic 30–187
[2017-11-09 00:17] LABS: ABSOLUTE NEUTROPHILS 9.8 thou/uL (1.4-8.2)
[2017-11-09 05:01] LABS: HEMATOCRIT 43.6 % (42.0-52.0); HEMOGLOBIN 14.8 gm/dL (14.0-18.0); MCHC 34.1 g/dL (28.0-37.0); MCV 88.2 fL (80.0-100.0); PLATELET COUNT 249 thou/uL (150-400); RBC 4.94 mil/uL (4.50-6.00); RDW 14.1 % (10.5-14.5)
[2017-11-09 05:21] LABS: CALCIUM 8.4 mg/dL (8.5-10.1); CREATININE 1.6 mg/dL (0.7-1.3); MAGNESIUM 2.3 mg/dL (1.8-2.4); PHOSPHORUS 1.6 mg/dL (2.5-4.9)
[2017-11-09 05:24] LABS: APTT 26.8 Seconds (24.5-32.8); INR 1.1; PROTIME 10.9 Seconds (9.3-11.4); TROPONIN-I 4.73 ng/mL (<0.06)
[2017-11-09 05:25] LABS: POTASSIUM 2.8 mmol/L (3.5-5.1)
[2017-11-09 05:30] LABS: BE(vivo) -2.5 mmol/L (-2 to +3); HCO3 18.6 mmol/L (22.0-26.0); PCO2 24.6 mmHg (35.0-45.0); pH 7.497 (7.360-7.450)
[2017-11-09 06:42] LABS: ABSOLUTE NEUTROPHILS 10.8 thou/uL (1.4-8.2); PLATELET ESTIMATE NORMAL
[2017-11-09 11:09] LABS: HEMATOCRIT 45.6 % (42.0-52.0); HEMOGLOBIN 15.5 gm/dL (14.0-18.0); MCH 30.3 pg (26.0-34.0); RBC 5.13 mil/uL (4.50-6.00); RDW 14.4 % (10.5-14.5); WBC 16.8 thou/uL (4.0-11.0)
[2017-11-09 11:13] LABS: CALCIUM 8.4 mg/dL (8.5-10.1); CREATININE 1.7 mg/dL (0.7-1.3)
[2017-11-09 11:14] LABS: POTASSIUM 5.1 mmol/L (3.5-5.1)
[2017-11-09 11:19] LABS: ALBUMIN 2.9 g/dL (3.4-5.0); PROTIME 10.7 Seconds (9.3-11.4); TOTAL PROTEIN 6.1 g/dL (6.4-8.2)
[2017-11-09 13:56] LABS: BE(vivo) -4.1 mmol/L (-2 to +3); HCO3 17.3 mmol/L (22.0-26.0); PO2 135.4 mmHg (80.0-100.0); pH 7.481 (7.360-7.450); sO2 98.9 % (92.0-98.0)
[2017-11-09 13:57] LABS: PCO2 23.7 mmHg (35.0-45.0)
[2017-11-09 15:02] LABS: FOLIC ACID 7.7 ng/mL (8.6-58.9)
[2017-11-09 18:29] LABS: HEMATOCRIT 42.9 % (42.0-52.0); HEMOGLOBIN 14.3 gm/dL (14.0-18.0); MCH 29.5 pg (26.0-34.0); MCHC 33.3 g/dL (28.0-37.0); MCV 88.8 fL (80.0-100.0); RBC 4.83 mil/uL (4.50-6.00); RDW 14.5 % (10.5-14.5); WBC 16.6 thou/uL (4.0-11.0)
[2017-11-09 18:53] LABS: ALBUMIN 2.8 g/dL (3.4-5.0); CALCIUM 8.2 mg/dL (8.5-10.1); CREATININE 1.8 mg/dL (0.7-1.3); MAGNESIUM 2.1 mg/dL (1.8-2.4); TOTAL BILIRUBIN 0.8 mg/dL (<0.1-1.0); TOTAL PROTEIN 6.1 g/dL (6.4-8.2)
[2017-11-09 18:56] LABS: POTASSIUM 3.9 mmol/L (3.5-5.1)
[2017-11-10] VITALS (47 sets, daily range): BP systolic 84–136; BP diastolic 57–96
[2017-11-10 01:29] LABS: HEMATOCRIT 42.3 % (42.0-52.0); HEMOGLOBIN 14.1 gm/dL (14.0-18.0); MCH 29.8 pg (26.0-34.0); MCHC 33.2 g/dL (28.0-37.0); MCV 89.7 fL (80.0-100.0); PLATELET COUNT 234 thou/uL (150-400); RBC 4.72 mil/uL (4.50-6.00); RDW 14.6 % (10.5-14.5)
[2017-11-10 01:40] LABS: ALBUMIN 2.8 g/dL (3.4-5.0); CALCIUM 7.6 mg/dL (8.5-10.1); CREATININE 1.8 mg/dL (0.7-1.3); POTASSIUM 3.9 mmol/L (3.5-5.1); TOTAL BILIRUBIN 0.8 mg/dL (<0.1-1.0); TOTAL PROTEIN 6.2 g/dL (6.4-8.2)
[2017-11-10 02:03] LABS: APTT 28.2 Seconds (24.5-32.8); INR 1.1; PROTIME 10.8 Seconds (9.3-11.4)
[2017-11-10 05:35] LABS: BE(vivo) -5.1 mmol/L (-2 to +3); HCO3 18.8 mmol/L (22.0-26.0); PCO2 32.1 mmHg (35.0-45.0); PO2 132.5 mmHg (80.0-100.0); pH 7.386 (7.360-7.450); sO2 98.6 % (92.0-98.0)
[2017-11-10 14:11] LABS: URINE BILIRUBIN NEGATIVE (Negative); URINE BLOOD 3+ (Negative); URINE CLARITY CLEAR; URINE COLOR YELLOW; URINE GLUCOSE-RANDOM* NEGATIVE (Negative); URINE KETONES NEGATIVE (Negative); URINE LEUKOCYTES-REFLEX NEGATIVE (Negative); URINE NITRITE-REFLEX NEGATIVE (Negative); URINE PROTEIN (DIPSTICK) TRACE (Negative); URINE UROBILINOGEN 0.2 E.U./dl (0.2-1.0)
[2017-11-10 14:19] LABS: BACTERIA-REFLEX 1-9 Few /HPF (None Seen); CASTS None Seen /LPF (None Seen); CRYSTALS None Seen /LPF (None Seen); SQUAMOUS None Seen /LPF (0-3); URINE RBC 3-10 Few /HPF (0-2); URINE WBC-REFLEX 0-5 Rare /HPF (0-5)
[2017-11-11] VITALS (95 sets, daily range): BP systolic 75–172; BP diastolic 50–116
[2017-11-11 04:27] LABS: ABSOLUTE NEUTROPHILS 8.4 thou/uL (1.4-8.2); BASOPHILS 0.3 % (0.0-2.0); EOSINOPHILS 0.1 % (0.0-3.0); HEMATOCRIT 33.8 % (42.0-52.0); LYMPHOCYTES 17.5 % (24.0-44.0); MCH 29.9 pg (26.0-34.0); MCHC 33.7 g/dL (28.0-37.0); MCV 88.7 fL (80.0-100.0); MONOCYTES 5.9 % (1.0-8.0); PLATELET COUNT 187 thou/uL (150-400); POLYS 76.2 % (36.0-66.0); RBC 3.81 mil/uL (4.50-6.00); RDW 14.7 % (10.5-14.5); WBC 11.1 thou/uL (4.0-11.0)
[2017-11-11 04:28] LABS: HEMOGLOBIN 11.4 gm/dL (14.0-18.0)
[2017-11-11 04:34] LABS: CALCIUM 7.5 mg/dL (8.5-10.1); CREATININE 1.6 mg/dL (0.7-1.3); POTASSIUM 3.1 mmol/L (3.5-5.1)
[2017-11-11 05:30] LABS: BE(vivo) -1.1 mmol/L (-2 to +3); HCO3 20.3 mmol/L (22.0-26.0); PCO2 25.8 mmHg (35.0-45.0); PO2 146.6 mmHg (80.0-100.0); pH 7.513 (7.360-7.450); sO2 99.1 % (92.0-98.0)
[2017-11-11 18:31] LABS: ALBUMIN 2.3 g/dL (3.4-5.0); CALCIUM 7.8 mg/dL (8.5-10.1); CREATININE 1.4 mg/dL (0.7-1.3); MAGNESIUM 2.3 mg/dL (1.8-2.4); PHOSPHORUS 1.9 mg/dL (2.5-4.9)
[2017-11-12] VITALS (57 sets, daily range): BP systolic 83–138; BP diastolic 55–100
[2017-11-12 05:37] LABS: ABSOLUTE NEUTROPHILS 7.9 thou/uL (1.4-8.2); BASOPHILS 0.3 % (0.0-2.0); EOSINOPHILS 0.2 % (0.0-3.0); HEMATOCRIT 31.3 % (42.0-52.0); HEMOGLOBIN 10.7 gm/dL (14.0-18.0); LYMPHOCYTES 14.9 % (24.0-44.0); MCH 30.5 pg (26.0-34.0); MCHC 34.2 g/dL (28.0-37.0); MCV 89.2 fL (80.0-100.0); MONOCYTES 6.8 % (1.0-8.0); PLATELET COUNT 152 thou/uL (150-400); POLYS 77.8 % (36.0-66.0); RBC 3.51 mil/uL (4.50-6.00); RDW 14.6 % (10.5-14.5); WBC 10.1 thou/uL (4.0-11.0)
[2017-11-12 05:44] LABS: ALBUMIN 2.2 g/dL (3.4-5.0); CALCIUM 7.7 mg/dL (8.5-10.1); CREATININE 1.4 mg/dL (0.7-1.3); MAGNESIUM 1.9 mg/dL (1.8-2.4); POTASSIUM 3.4 mmol/L (3.5-5.1)
[2017-11-12 18:06] LABS: GLYCOHEMOGLOBIN (HGB A1C) 5.4 % (4.8-5.6)
[2017-11-13] VITALS (38 sets, daily range): BP systolic 84–142; BP diastolic 55–99
[2017-11-13 04:27] LABS: BE(vivo) 3.6 mmol/L (-2 to +3); HCO3 26.9 mmol/L (22.0-26.0); PCO2 35.7 mmHg (35.0-45.0); pH 7.495 (7.360-7.450)
[2017-11-13 04:51] LABS: HEMATOCRIT 29.8 % (42.0-52.0); HEMOGLOBIN 10.1 gm/dL (14.0-18.0); MCH 30.3 pg (26.0-34.0); MCHC 33.9 g/dL (28.0-37.0); MCV 89.4 fL (80.0-100.0); RBC 3.34 mil/uL (4.50-6.00); RDW 14.6 % (10.5-14.5); WBC 7.7 thou/uL (4.0-11.0)
[2017-11-13 05:04] LABS: APTT 42.9 Seconds (24.5-32.8); PROTIME 9.9 Seconds (9.3-11.4)
[2017-11-13 05:06] LABS: ALBUMIN 2.1 g/dL (3.4-5.0); CALCIUM 7.6 mg/dL (8.5-10.1); CREATININE 1.4 mg/dL (0.7-1.3); MAGNESIUM 1.9 mg/dL (1.8-2.4); PHOSPHORUS 2.9 mg/dL (2.5-4.9); POTASSIUM 3.2 mmol/L (3.5-5.1)
[2017-11-13 13:07] LABS: HEMATOCRIT 22.9 % (42.0-52.0); MCH 30.6 pg (26.0-34.0); MCHC 34.3 g/dL (28.0-37.0); MCV 89.2 fL (80.0-100.0); RBC 2.57 mil/uL (4.50-6.00); RDW 14.5 % (10.5-14.5); WBC 4.9 thou/uL (4.0-11.0)
[2017-11-13 13:14] LABS: HEMOGLOBIN 7.9 gm/dL (14.0-18.0)
[2017-11-13 13:25] LABS: FIBRINOGEN 438.2 mg/dL (210-360); INR 1.4; PROTIME 14.6 Seconds (9.3-11.4)
[2017-11-13 13:28] LABS: APTT 25.3 Seconds (24.5-32.8)
[2017-11-13 14:32] LABS: POC BE 1 mmol/L (-2.0 to +3.0); POC CA IONIZED 4.1 mg/dL (4.5-5.3); POC GLUCOSE 99 mg/dL (70-99); POC HCO3 24.6 mmol/L (22.0-26.0); POC HEMOGLOBIN 7.8 g/dL (14.0-18.0); POC POTASSIUM 3.5 mmol/L (3.5-5.1); POC SODIUM 139 mmol/L (136-145); POC pCO2 33.3 mmHg (35.0-45.0); POC pH 7.477 (7.360-7.450)
[2017-11-13 14:32] LABS: POC BE 2 mmol/L (-2.0 to +3.0); POC CA IONIZED 4.4 mg/dL (4.5-5.3); POC GLUCOSE 111 mg/dL (70-99); POC HCO3 25.6 mmol/L (22.0-26.0); POC HEMOGLOBIN 9.5 g/dL (14.0-18.0); POC POTASSIUM 3.4 mmol/L (3.5-5.1); POC SODIUM 138 mmol/L (136-145); POC pCO2 34.3 mmHg (35.0-45.0); POC pH 7.481 (7.360-7.450)
[2017-11-13 14:32] LABS: POC BE 0 mmol/L (-2.0 to +3.0); POC CA IONIZED 6.8 mg/dL (4.5-5.3); POC GLUCOSE 92 mg/dL (70-99); POC HCO3 23.5 mmol/L (22.0-26.0); POC HEMOGLOBIN 7.8 g/dL (14.0-18.0); POC POTASSIUM 4.1 mmol/L (3.5-5.1); POC SODIUM 138 mmol/L (136-145); POC pCO2 31.4 mmHg (35.0-45.0); POC pH 7.482 (7.360-7.450)
[2017-11-13 14:32] LABS: POC BE -1 mmol/L (-2.0 to +3.0); POC CA IONIZED 6.6 mg/dL (4.5-5.3); POC GLUCOSE 92 mg/dL (70-99); POC HCO3 23.2 mmol/L (22.0-26.0); POC HEMOGLOBIN 7.1 g/dL (14.0-18.0); POC SODIUM 138 mmol/L (136-145); POC pCO2 33.6 mmHg (35.0-45.0); POC pH 7.447 (7.360-7.450)
[2017-11-13 14:32] LABS: POC BE 2 mmol/L (-2.0 to +3.0); POC CA IONIZED 5.4 mg/dL (4.5-5.3); POC GLUCOSE 116 mg/dL (70-99); POC HCO3 24.8 mmol/L (22.0-26.0); POC HEMOGLOBIN 6.8 g/dL (14.0-18.0); POC POTASSIUM 3.6 mmol/L (3.5-5.1); POC SODIUM 141 mmol/L (136-145); POC pCO2 28.8 mmHg (35.0-45.0); POC pH 7.543 (7.360-7.450)
[2017-11-13 14:32] LABS: POC BE -4 mmol/L (-2.0 to +3.0); POC CA IONIZED 3.9 mg/dL (4.5-5.3); POC GLUCOSE 95 mg/dL (70-99); POC HCO3 21.5 mmol/L (22.0-26.0); POC HEMOGLOBIN 7.1 g/dL (14.0-18.0); POC POTASSIUM 3.5 mmol/L (3.5-5.1); POC SODIUM 138 mmol/L (136-145); POC pCO2 36.9 mmHg (35.0-45.0); POC pH 7.374 (7.360-7.450)
[2017-11-13 14:32] LABS: POC BE -3 mmol/L (-2.0 to +3.0); POC CA IONIZED > 8.9 mg/dL (4.5-5.3); POC GLUCOSE 101 mg/dL (70-99); POC HCO3 24.2 mmol/L (22.0-26.0); POC HEMOGLOBIN 7.5 g/dL (14.0-18.0); POC POTASSIUM 4.9 mmol/L (3.5-5.1); POC SODIUM 134 mmol/L (136-145); POC pH 7.276 (7.360-7.450)
[2017-11-13 15:28] LABS: BE(vivo) -0.7 mmol/L (-2 to +3); HCO3 24.4 mmol/L (22.0-26.0); PCO2 42.1 mmHg (35.0-45.0); PO2 91.1 mmHg (80.0-100.0); pH 7.381 (7.360-7.450); sO2 96.8 % (92.0-98.0)
[2017-11-13 15:48] LABS: HEMATOCRIT 26.2 % (42.0-52.0); HEMOGLOBIN 8.8 gm/dL (14.0-18.0); MCHC 33.6 g/dL (28.0-37.0); MCV 89.2 fL (80.0-100.0); RBC 2.93 mil/uL (4.50-6.00); RDW 14.6 % (10.5-14.5); WBC 12.5 thou/uL (4.0-11.0)
[2017-11-13 15:53] LABS: CALCIUM 9.2 mg/dL (8.5-10.1); MAGNESIUM 2.4 mg/dL (1.8-2.4); POTASSIUM 3.7 mmol/L (3.5-5.1)
[2017-11-13 16:01] LABS: APTT 25.5 Seconds (24.5-32.8); INR 1.1
[2017-11-13 21:58] LABS: URINE BILIRUBIN NEGATIVE (Negative); URINE BLOOD 2+ (Negative); URINE CLARITY CLEAR; URINE COLOR YELLOW; URINE GLUCOSE-RANDOM* NEGATIVE (Negative); URINE KETONES NEGATIVE (Negative); URINE LEUKOCYTES-REFLEX NEGATIVE (Negative); URINE NITRITE-REFLEX NEGATIVE (Negative); URINE PROTEIN (DIPSTICK) NEGATIVE (Negative); URINE SPECIFIC GRAVITY <= 1.005 (1.005-1.035); URINE UROBILINOGEN 0.2 E.U./dl (0.2-1.0)
[2017-11-13 22:05] LABS: CASTS None Seen /LPF (None Seen); CRYSTALS None Seen /LPF (None Seen); SQUAMOUS None Seen /LPF (0-3); URINE RBC 3-10 Few /HPF (0-2); URINE WBC-REFLEX None Seen /HPF (0-5)
[2017-11-13 22:06] LABS: BACTERIA-REFLEX 1-9 Few /HPF (None Seen)
[2017-11-14] VITALS (62 sets, daily range): BP systolic 110–143; BP diastolic 63–114
[2017-11-14 04:41] LABS: HEMATOCRIT 23.9 % (42.0-52.0); MCH 30.3 pg (26.0-34.0); MCHC 33.6 g/dL (28.0-37.0); MCV 90.2 fL (80.0-100.0); PLATELET COUNT 149 thou/uL (150-400); RBC 2.65 mil/uL (4.50-6.00); RDW 15.5 % (10.5-14.5); WBC 9.1 thou/uL (4.0-11.0)
[2017-11-14 04:52] LABS: PROTIME 10.7 Seconds (9.3-11.4)
[2017-11-14 04:54] LABS: ALBUMIN 3.2 g/dL (3.4-5.0); CALCIUM 8.4 mg/dL (8.5-10.1); CREATININE 1.4 mg/dL (0.7-1.3); MAGNESIUM 2.1 mg/dL (1.8-2.4); POTASSIUM 3.8 mmol/L (3.5-5.1); TOTAL BILIRUBIN 1.3 mg/dL (<0.1-1.0); TOTAL PROTEIN 5.8 g/dL (6.4-8.2)
[2017-11-14 05:14] LABS: BE(vivo) -2.2 mmol/L (-2 to +3); HCO3 23.4 mmol/L (22.0-26.0); PCO2 43.8 mmHg (35.0-45.0); PO2 109.2 mmHg (80.0-100.0); pH 7.346 (7.360-7.450); sO2 97.7 % (92.0-98.0)
[2017-11-14 07:21] LABS: ABSOLUTE NEUTROPHILS 7.2 thou/uL (1.4-8.2); ANISOCYTOSIS 1+; NUCLEATED RBCS 1 /100WBC; POLYCHROMASIA OCCASIONAL
[2017-11-14 09:10] LABS: HCO3 24.8 mmol/L (22.0-26.0); PCO2 46.4 mmHg (35.0-45.0); PO2 77.8 mmHg (80.0-100.0); pH 7.345 (7.360-7.450); sO2 94.8 % (92.0-98.0)
[2017-11-15] VITALS (46 sets, daily range): BP systolic 79–156; BP diastolic 49–108
[2017-11-15 04:47] LABS: HEMATOCRIT 24.1 % (42.0-52.0); HEMOGLOBIN 8.1 gm/dL (14.0-18.0); MCH 30.4 pg (26.0-34.0); MCHC 33.6 g/dL (28.0-37.0); MCV 90.3 fL (80.0-100.0); RBC 2.67 mil/uL (4.50-6.00); RDW 15.2 % (10.5-14.5); WBC 14.5 thou/uL (4.0-11.0)
[2017-11-15 05:01] LABS: ALBUMIN 2.7 g/dL (3.4-5.0); CALCIUM 8.3 mg/dL (8.5-10.1); CREATININE 1.7 mg/dL (0.7-1.3); MAGNESIUM 2.1 mg/dL (1.8-2.4); PHOSPHORUS 3.3 mg/dL (2.5-4.9); POTASSIUM 3.6 mmol/L (3.5-5.1)
[2017-11-15 08:04] LABS: BE(vivo) -1.3 mmol/L (-2 to +3); HCO3 23.1 mmol/L (22.0-26.0); PCO2 37.1 mmHg (35.0-45.0); pH 7.412 (7.360-7.450); sO2 86.2 % (92.0-98.0)
[2017-11-15 08:05] LABS: PO2 50.2 mmHg (80.0-100.0)
[2017-11-15] MEDS ORDERED: ATIVAN1 MG PO (12:16)
[2017-11-15] MEDS ORDERED: LEXAPRO20 MG PO (12:16)
[2017-11-16] VITALS (109 sets, daily range): BP systolic 62–125; BP diastolic 46–90
[2017-11-16 03:17] LABS: BE(vivo) -1.7 mmol/L (-2 to +3); HCO3 23.7 mmol/L (22.0-26.0); PCO2 43.5 mmHg (35.0-45.0); PO2 143.5 mmHg (80.0-100.0); pH 7.355 (7.360-7.450); sO2 98.7 % (92.0-98.0)
[2017-11-16 05:12] LABS: BASOPHILS 0.4 % (0.0-2.0); EOSINOPHILS 0.4 % (0.0-3.0); HEMOGLOBIN 7.2 gm/dL (14.0-18.0); LYMPHOCYTES 9.5 % (24.0-44.0); MCH 29.6 pg (26.0-34.0); MCHC 32.9 g/dL (28.0-37.0); MONOCYTES 7.4 % (1.0-8.0); PLATELET COUNT 270 thou/uL (150-400); POLYS 82.3 % (36.0-66.0); RBC 2.44 mil/uL (4.50-6.00)
[2017-11-16 05:22] LABS: ALBUMIN 2.4 g/dL (3.4-5.0); CALCIUM 8.2 mg/dL (8.5-10.1); PHOSPHORUS 4.5 mg/dL (2.5-4.9); POTASSIUM 3.6 mmol/L (3.5-5.1); TOTAL BILIRUBIN 0.9 mg/dL (<0.1-1.0); TOTAL PROTEIN 5.4 g/dL (6.4-8.2)
[2017-11-16 05:26] LABS: CREATININE 4.6 mg/dL (0.7-1.3)
[2017-11-16 10:20] LABS: CALCIUM 8.1 mg/dL (8.5-10.1); CREATININE 4.7 mg/dL (0.7-1.3); POTASSIUM 3.4 mmol/L (3.5-5.1)
[2017-11-16 13:39] LABS: BE(vivo) -2.8 mmol/L (-2 to +3); HCO3 23.4 mmol/L (22.0-26.0); PCO2 47.3 mmHg (35.0-45.0); PO2 262.5 mmHg (80.0-100.0); pH 7.312 (7.360-7.450); sO2 99.5 % (92.0-98.0)
[2017-11-16 16:11] LABS: CALCIUM 7.8 mg/dL (8.5-10.1); POTASSIUM 3.2 mmol/L (3.5-5.1)
[2017-11-17] VITALS (58 sets, daily range): BP systolic 63–126; BP diastolic 38–92
[2017-11-17 05:40] LABS: HEMATOCRIT 22.1 % (42.0-52.0); HEMOGLOBIN 7.2 gm/dL (14.0-18.0); MCH 29.7 pg (26.0-34.0); MCHC 32.8 g/dL (28.0-37.0); MCV 90.5 fL (80.0-100.0); RBC 2.44 mil/uL (4.50-6.00); RDW 15.2 % (10.5-14.5); WBC 11.4 thou/uL (4.0-11.0)
[2017-11-17 05:43] LABS: BE(vivo) -1.9 mmol/L (-2 to +3); HCO3 22.9 mmol/L (22.0-26.0); PCO2 39.1 mmHg (35.0-45.0); PO2 104.8 mmHg (80.0-100.0); pH 7.386 (7.360-7.450); sO2 97.8 % (92.0-98.0)
[2017-11-17 05:51] LABS: ALBUMIN 2.1 g/dL (3.4-5.0); CALCIUM 7.9 mg/dL (8.5-10.1); CREATININE 5.8 mg/dL (0.7-1.3); PHOSPHORUS 4.3 mg/dL (2.5-4.9); POTASSIUM 3.4 mmol/L (3.5-5.1)
[2017-11-17 16:20] LABS: CALCIUM 8.2 mg/dL (8.5-10.1); CREATININE 6.1 mg/dL (0.7-1.3); POTASSIUM 3.3 mmol/L (3.5-5.1)
[2017-11-18] VITALS (45 sets, daily range): BP systolic 93–154; BP diastolic 58–116
[2017-11-18 05:05] LABS: BE(vivo) -0.6 mmol/L (-2 to +3); HCO3 24.4 mmol/L (22.0-26.0); PCO2 41.8 mmHg (35.0-45.0); PO2 102.2 mmHg (80.0-100.0); pH 7.384 (7.360-7.450); sO2 97.6 % (92.0-98.0)
[2017-11-18 05:24] LABS: HEMOGLOBIN 8.1 gm/dL (14.0-18.0); MCH 30.6 pg (26.0-34.0); MCHC 33.8 g/dL (28.0-37.0); MCV 90.5 fL (80.0-100.0); RBC 2.65 mil/uL (4.50-6.00); RDW 15.6 % (10.5-14.5); WBC 10.3 thou/uL (4.0-11.0)
[2017-11-18 05:36] LABS: CALCIUM 8.4 mg/dL (8.5-10.1); CREATININE 6.5 mg/dL (0.7-1.3); PHOSPHORUS 3.9 mg/dL (2.5-4.9); POTASSIUM 3.5 mmol/L (3.5-5.1)
[2017-11-19] VITALS (33 sets, daily range): BP systolic 87–123; BP diastolic 55–86
[2017-11-19 05:13] LABS: HEMATOCRIT 22.4 % (42.0-52.0); HEMOGLOBIN 7.6 gm/dL (14.0-18.0); MCH 30.5 pg (26.0-34.0); MCHC 34.1 g/dL (28.0-37.0); MCV 89.5 fL (80.0-100.0); RBC 2.5 mil/uL (4.50-6.00); RDW 15.4 % (10.5-14.5); WBC 10.7 thou/uL (4.0-11.0)
[2017-11-19 05:28] LABS: ALBUMIN 1.9 g/dL (3.4-5.0); CALCIUM 7.7 mg/dL (8.5-10.1); CREATININE 6.6 mg/dL (0.7-1.3); MAGNESIUM 2.2 mg/dL (1.8-2.4); PHOSPHORUS 3.4 mg/dL (2.5-4.9); POTASSIUM 3.1 mmol/L (3.5-5.1); TOTAL BILIRUBIN 0.6 mg/dL (<0.1-1.0); TOTAL PROTEIN 5.7 g/dL (6.4-8.2)
[2017-11-19 05:35] LABS: BE(vivo) -1.1 mmol/L (-2 to +3); HCO3 23.5 mmol/L (22.0-26.0); PCO2 38.7 mmHg (35.0-45.0); PO2 58.3 mmHg (80.0-100.0); pH 7.402 (7.360-7.450); sO2 90.5 % (92.0-98.0)
[2017-11-20] VITALS (22 sets, daily range): BP systolic 82–134; BP diastolic 46–79
[2017-11-20 05:57] LABS: ALBUMIN 1.8 g/dL (3.4-5.0); CALCIUM 8.1 mg/dL (8.5-10.1); PHOSPHORUS 5.7 mg/dL (2.5-4.9); POTASSIUM 3.3 mmol/L (3.5-5.1)
[2017-11-20 14:06] LABS: BE(vivo) -3.3 mmol/L (-2 to +3); HCO3 21.6 mmol/L (22.0-26.0); PCO2 37.8 mmHg (35.0-45.0); PO2 106.1 mmHg (80.0-100.0); pH 7.375 (7.360-7.450); sO2 97.8 % (92.0-98.0)
[2017-11-20 16:22] LABS: HEMOGLOBIN 7.3 gm/dL (14.0-18.0); MCH 29.5 pg (26.0-34.0); MCV 89.3 fL (80.0-100.0); RBC 2.47 mil/uL (4.50-6.00); RDW 15.5 % (10.5-14.5); WBC 12.4 thou/uL (4.0-11.0)
[2017-11-20 16:38] LABS: PROTIME 10.7 Seconds (9.3-11.4)
[2017-11-21] VITALS (28 sets, daily range): BP systolic 76–127; BP diastolic 45–87
[2017-11-21 04:36] LABS: BASOPHILS 0.6 % (0.0-2.0)
[2017-11-21 04:38] LABS: ABSOLUTE NEUTROPHILS 6.4 thou/uL (1.4-8.2); EOSINOPHILS 1.9 % (0.0-3.0); LYMPHOCYTES 12.5 % (24.0-44.0); MCH 30.4 pg (26.0-34.0); MCHC 34.1 g/dL (28.0-37.0); MCV 89.3 fL (80.0-100.0); PLATELET COUNT 348 thou/uL (150-400); RBC 2.23 mil/uL (4.50-6.00); RDW 15.5 % (10.5-14.5); WBC 8.7 thou/uL (4.0-11.0)
[2017-11-21 04:42] LABS: HEMATOCRIT 20.1 % (42.0-52.0); HEMOGLOBIN 6.82 gm/dL (14.0-18.0)
[2017-11-21 04:46] LABS: ALBUMIN 1.9 g/dL (3.4-5.0); CALCIUM 8.1 mg/dL (8.5-10.1); CREATININE 7.2 mg/dL (0.7-1.3); POTASSIUM 3.2 mmol/L (3.5-5.1); TOTAL BILIRUBIN 0.5 mg/dL (<0.1-1.0)
[2017-11-21 05:16] LABS: BE(vivo) -3.3 mmol/L (-2 to +3); HCO3 21.8 mmol/L (22.0-26.0); PCO2 39.1 mmHg (35.0-45.0); PO2 131.7 mmHg (80.0-100.0); pH 7.364 (7.360-7.450); sO2 98.5 % (92.0-98.0)
[2017-11-21 18:20] LABS: CALCIUM 8.1 mg/dL (8.5-10.1); PHOSPHORUS 5.1 mg/dL (2.5-4.9); POTASSIUM 3.4 mmol/L (3.5-5.1)
[2017-11-22] VITALS (23 sets, daily range): BP systolic 93–167; BP diastolic 53–143
[2017-11-22 04:56] LABS: ALBUMIN 2.1 g/dL (3.4-5.0); CALCIUM 8.4 mg/dL (8.5-10.1); CREATININE 7.2 mg/dL (0.7-1.3); PHOSPHORUS 4.9 mg/dL (2.5-4.9); POTASSIUM 3.8 mmol/L (3.5-5.1)
[2017-11-22 07:35] LABS: HEMATOCRIT 24.6 % (42.0-52.0); HEMOGLOBIN 8.1 gm/dL (14.0-18.0); MCH 29.5 pg (26.0-34.0); MCV 89.5 fL (80.0-100.0); PLATELET COUNT 361 thou/uL (150-400); RBC 2.75 mil/uL (4.50-6.00); RDW 15.1 % (10.5-14.5); WBC 7.6 thou/uL (4.0-11.0)
[2017-11-22 08:22] LABS: ABSOLUTE NEUTROPHILS 5.2 thou/uL (1.4-8.2); ANISOCYTOSIS SLIGHT
[2017-11-22 16:57] LABS: APTT 28.9 Seconds (24.5-32.8); INR 1.1; PROTIME 11.4 Seconds (9.3-11.4)
[2017-11-22 17:26] LABS: CLARITY CLOUDY; COLOR RED; TOTAL VOLUME 60 mL
[2017-11-22 17:27] LABS: SOURCE RIGHT THORA
[2017-11-22 17:35] LABS: BF NUCLEATED CELLS 971; BF RBC 89087
[2017-11-22 19:03] LABS: BF MACROPHAGE 7; BF NEUTROPHILS 9
[2017-11-23] VITALS (25 sets, daily range): BP systolic 106–168; BP diastolic 70–123
[2017-11-23 05:06] LABS: HEMATOCRIT 23.4 % (42.0-52.0); HEMOGLOBIN 7.9 gm/dL (14.0-18.0); MCH 29.6 pg (26.0-34.0); MCHC 33.7 g/dL (28.0-37.0); MCV 87.9 fL (80.0-100.0); RBC 2.67 mil/uL (4.50-6.00); RDW 15.1 % (10.5-14.5); WBC 8.3 thou/uL (4.0-11.0)
[2017-11-23 05:18] LABS: ALBUMIN 2.2 g/dL (3.4-5.0); CALCIUM 8.8 mg/dL (8.5-10.1); CREATININE 7.2 mg/dL (0.7-1.3); PHOSPHORUS 4.3 mg/dL (2.5-4.9); POTASSIUM 3.6 mmol/L (3.5-5.1)
[2017-11-23 05:19] LABS: APTT 29.9 Seconds (24.5-32.8); INR 1.2; PROTIME 11.8 Seconds (9.3-11.4)
[2017-11-23 13:10] LABS: BODY FLUID ALBUMIN 1.3 g/dL (()); BODY FLUID AMYLASE 29 U/L (()); BODY FLUID GLUCOSE 107 mg/dL (()); BODY FLUID LDH 278 IU/L (()); BODY FLUID PROTEIN 2.6 g/dL (())
[2017-11-24] VITALS (20 sets, daily range): BP systolic 107–172; BP diastolic 85–137
[2017-11-24 04:37] LABS: SOURCE THORACENTESIS
[2017-11-24 06:26] LABS: ALBUMIN 2.2 g/dL (3.4-5.0); CALCIUM 8.9 mg/dL (8.5-10.1); CREATININE 7.1 mg/dL (0.7-1.3); PHOSPHORUS 3.9 mg/dL (2.5-4.9); POTASSIUM 3.1 mmol/L (3.5-5.1)
[2017-11-25] VITALS (14 sets, daily range): BP systolic 107–188; BP diastolic 69–131
[2017-11-25 06:22] LABS: HEMATOCRIT 25.6 % (42.0-52.0); HEMOGLOBIN 8.3 gm/dL (14.0-18.0); MCH 29.4 pg (26.0-34.0); MCHC 32.6 g/dL (28.0-37.0); RBC 2.84 mil/uL (4.50-6.00); RDW 15.3 % (10.5-14.5); WBC 8.8 thou/uL (4.0-11.0)
[2017-11-25 06:24] LABS: PLATELET COUNT 629 thou/uL (150-400)
[2017-11-25 06:25] LABS: CALCIUM 8.7 mg/dL (8.5-10.1); CREATININE 6.7 mg/dL (0.7-1.3); POTASSIUM 3.7 mmol/L (3.5-5.1)
[2017-11-25 06:43] LABS: ABSOLUTE NEUTROPHILS 5.5 thou/uL (1.4-8.2); METAMYELOCYTES 1 %; POLYCHROMASIA 2+
[2017-11-25 06:44] LABS: TOXIC GRANULATION 1+
[2017-11-26] VITALS (12 sets, daily range): BP systolic 123–184; BP diastolic 88–104
[2017-11-26 05:53] LABS: BASOPHILS 0.8 % (0.0-2.0); EOSINOPHILS 2.4 % (0.0-3.0); HEMATOCRIT 25.7 % (42.0-52.0); HEMOGLOBIN 8.5 gm/dL (14.0-18.0); LYMPHOCYTES 16.7 % (24.0-44.0); MCH 29.6 pg (26.0-34.0); MCHC 32.9 g/dL (28.0-37.0); MCV 89.9 fL (80.0-100.0); MONOCYTES 11.2 % (1.0-8.0); PLATELET COUNT 658 thou/uL (150-400); POLYS 68.9 % (36.0-66.0); RBC 2.86 mil/uL (4.50-6.00); RDW 14.9 % (10.5-14.5); WBC 10.1 thou/uL (4.0-11.0)
[2017-11-26 06:06] LABS: ALBUMIN 2.2 g/dL (3.4-5.0); CALCIUM 8.7 mg/dL (8.5-10.1); CREATININE 5.8 mg/dL (0.7-1.3); PHOSPHORUS 3.9 mg/dL (2.5-4.9); POTASSIUM 3.3 mmol/L (3.5-5.1)
[2017-11-26 13:12] LABS: GLOMERULR BASEM MEMBRN AB 49 units (0-20)
[2017-11-27 03:54] LABS: ALBUMIN 2.2 g/dL (3.4-5.0); CALCIUM 8.1 mg/dL (8.5-10.1); CREATININE 5.2 mg/dL (0.7-1.3); PHOSPHORUS 4.7 mg/dL (2.5-4.9); POTASSIUM 3.7 mmol/L (3.5-5.1)
[2017-11-27 03:58] VITALS: BP 136/84
[2017-11-27 07:50] VITALS: BP 136/86
[2017-11-27 15:32] VITALS: BP 147/63
[2017-11-28 04:21] VITALS: BP 157/85
[2017-11-28 06:37] LABS: HEMOGLOBIN 7.8 gm/dL (14.0-18.0); MCH 29.5 pg (26.0-34.0); MCV 86.8 fL (80.0-100.0); RBC 2.65 mil/uL (4.50-6.00); RDW 15.1 % (10.5-14.5); WBC 10.7 thou/uL (4.0-11.0)
[2017-11-28 06:51] LABS: CALCIUM 7.7 mg/dL (8.5-10.1); CREATININE 4.5 mg/dL (0.7-1.3); PHOSPHORUS 2.7 mg/dL (2.5-4.9)
[2017-11-28 07:33] VITALS: BP 154/94
[2017-11-28 12:12] VITALS: BP 150/100
[2017-11-28 15:28] VITALS: BP 155/98
[2017-11-28 20:27] VITALS: BP 164/97
[2017-11-28 23:59] VITALS: BP 166/114
[2017-11-29 04:31] VITALS: BP 170/109
[2017-11-29 04:39] LABS: HEMATOCRIT 24.6 % (42.0-52.0); HEMOGLOBIN 8.1 gm/dL (14.0-18.0); MCH 29.1 pg (26.0-34.0); MCHC 32.9 g/dL (28.0-37.0); MCV 88.5 fL (80.0-100.0); PLATELET COUNT 610 thou/uL (150-400); RBC 2.78 mil/uL (4.50-6.00); RDW 14.9 % (10.5-14.5)
[2017-11-29 04:51] LABS: CALCIUM 7.7 mg/dL (8.5-10.1); CREATININE 4.1 mg/dL (0.7-1.3); PHOSPHORUS 3.2 mg/dL (2.5-4.9)
[2017-11-29 05:00] LABS: POTASSIUM 2.7 mmol/L (3.5-5.1)
[2017-11-29 05:12] LABS: ABSOLUTE NEUTROPHILS 7.9 thou/uL (1.4-8.2); ANISOCYTOSIS 2+; LARGE PLATELETS RARE
[2017-11-29 07:56] VITALS: BP 156/107
[2017-11-29 12:00] VITALS: BP 124/82
[2017-11-29] MEDS ORDERED: IPRATROPIU0.2 MG/1 M INH (17:14)
[2017-11-29] MEDS ORDERED: LEVALBUTER0.63 MG/3 INH ×2 (17:14→17:15)
[2017-11-29] MEDS ORDERED: PACERONE 200 M200 M1 PO (17:14)
[2017-11-29] MEDS ORDERED: LOPRESSOR50 PO (17:14)
[2017-11-29] MEDS ORDERED: ENOXAPARIN30 MG/0.1 SUBQ (17:14)
[2017-11-29] MEDS ORDERED: HYDROCODON-ACE1 EAC7 PO (17:14)
== END 2017-11-29 17:37 | DRG 233 ==
LOC: ER 08:29 → 2N 09:00 → EROBS 09:00 → ICU 09:00 → 2N 11-26 19:00
PROVIDERS: Emergency Medicine; Family Medicine; Hospitalist; Internal Medicine Cardiovascular Disease; Internal Medicine Nephrology; Internal Medicine Pulmonary Disease; Nurse Practitioner; Nurse Practitioner Gerontology; Specialist; Thoracic Surgery (Cardiothoracic Vascular Surgery)
PROC: 5A1955Z Respiratory Ventilation, Greater than 96 Consecutive Hours (ICD-10-PCS; principal; 2017-11-08)
PROC: 02H633Z Insertion of Infusion Device into Right Atrium, Percutaneous Approach (ICD-10-PCS; 2017-11-08)
PROC: 02100Z9 Bypass Coronary Artery, One Artery from Left Internal Mammary, Open Approach (ICD-10-PCS; 2017-11-13)
PROC: 30233K1 Transfusion of Nonautologous Frozen Plasma into Peripheral Vein, Percutaneous Approach (ICD-10-PCS; 2017-11-13)
PROC: 30233R1 Transfusion of Nonautologous Platelets into Peripheral Vein, Percutaneous Approach (ICD-10-PCS; 2017-11-13)
PROC: 30233N1 Transfusion of Nonautologous Red Blood Cells into Peripheral Vein, Percutaneous Approach (ICD-10-PCS; 2017-11-13)
PROC: 30233L1 Transfusion of Nonautologous Fresh Plasma into Peripheral Vein, Percutaneous Approach (ICD-10-PCS; 2017-11-13)
PROC: 05HM33Z Insertion of Infusion Device into Right Internal Jugular Vein, Percutaneous Approach (ICD-10-PCS; 2017-11-13)
PROC: B543ZZA Ultrasonography of Right Jugular Veins, Guidance (ICD-10-PCS; 2017-11-13)
PROC: 05HB33Z Insertion of Infusion Device into Right Basilic Vein, Percutaneous Approach (ICD-10-PCS; 2017-11-21)
PROC: B2111ZZ Fluoroscopy of Multiple Coronary Arteries using Low Osmolar Contrast (ICD-10-PCS; 2017-11-22)
PROC: 4A023N7 Measurement of Cardiac Sampling and Pressure, Left Heart, Percutaneous Approach (ICD-10-PCS; 2017-11-22)
PROC: 0W993ZX Drainage of Right Pleural Cavity, Percutaneous Approach, Diagnostic (ICD-10-PCS; 2017-11-22)
PROC: 5A2204Z Restoration of Cardiac Rhythm, Single (ICD-10-PCS; 2017-11-25)
DX: I25.10 Atherosclerotic heart disease of native coronary artery without angina pectoris (principal); I46.9 Cardiac arrest, cause unspecified; S22.49XA Multiple fractures of ribs, unspecified side, initial encounter for closed fracture; J96.01 Acute respiratory failure with hypoxia; J69.0 Pneumonitis due to inhalation of food and vomit; G93.40 Encephalopathy, unspecified; E87.6 Hypokalemia; N17.9 Acute kidney failure, unspecified; I95.9 Hypotension, unspecified; I49.01 Ventricular fibrillation; I25.5 Ischemic cardiomyopathy; N18.9 Chronic kidney disease, unspecified; R57.0 Cardiogenic shock; K75.9 Inflammatory liver disease, unspecified; F10.20 Alcohol dependence, uncomplicated; F10.10 Alcohol abuse, uncomplicated; F41.1 Generalized anxiety disorder; F32.9 Major depressive disorder, single episode, unspecified; G93.1 Anoxic brain damage, not elsewhere classified; G47.00 Insomnia, unspecified; E43 Unspecified severe protein-calorie malnutrition; E87.2 Acidosis; I50.20 Unspecified systolic (congestive) heart failure; E87.0 Hyperosmolality and hypernatremia; I48.92 Unspecified atrial flutter; M10.9 Gout, unspecified; E78.00 Pure hypercholesterolemia, unspecified; E78.5 Hyperlipidemia, unspecified; T68.XXXA Hypothermia, initial encounter; R00.1 Bradycardia, unspecified; I25.9 Chronic ischemic heart disease, unspecified; R34 Anuria and oliguria; I49.9 Cardiac arrhythmia, unspecified; R13.10 Dysphagia, unspecified; R41.0 Disorientation, unspecified; R41.9 Unspecified symptoms and signs involving cognitive functions and awareness; D72.829 Elevated white blood cell count, unspecified; K57.90 Diverticulosis of intestine, part unspecified, without perforation or abscess without bleeding; Z60.2 Problems related to living alone; F17.210 Nicotine dependence, cigarettes, uncomplicated; I49.8 Other specified cardiac arrhythmias; D64.9 Anemia, unspecified; Z79.899 Other long term (current) drug therapy; Z82.49 Family history of ischemic heart disease and other diseases of the circulatory system; Z80.1 Family history of malignant neoplasm of trachea, bronchus and lung; Z79.82 Long term (current) use of aspirin; Z68.27 Body mass index [BMI] 27.0-27.9, adult
CPT/HCPCS: 10078; 10081; 27000; 47000; 47001; 47002; 47297; 47382; 48888; 50011; 50409; 50497; 50662; 50953; 51301; 52131; 52314; 53327; 53358; 56524; 56525; 56526; 56527; 56528; 56529; 56531; 56534; 56639; 57093; 62110; 62900; 62950; 64029; 65002; 65003; 65020; 65043; 65090; 65120; 85030

== ENCOUNTER 2017-11-29 15:13 | Inpatient (IN) | payer OTHER ==
[~2017-11-29] VITALS: Ht 175.3 cm; Wt 88.9 kg
--- NOTE | ~2017-11-29 | PLAN ---
[facility] [place] [address] REHAB UNIT PLAN OF CARE Name: GIBRAN DURANT Room #: 515-P ADM IN M.R.#: [id number] Admission: 11/29/17 Attend Phys: Paul Delgado MD Discharge: Date of : 51 Report #: [id number] THIS REPORT FOR: //name// CC: João Delgado DATE OF SERVICE: 12/02/2017 The patient is seen back today in followup. He is in no distress. Last recorded temperature 97.8, pulse 81, respirations 18, blood pressure 151/75. The patient is alert, appears to be impulsive. Transfers are min assist with gait min assist 250 feet without a device. In occupational therapy, upper body dressing setup with lower body, min assist. In speech therapy, he continues on a mechanical soft with nectar thickened liquids. He tends to be impulsive and needs to continue with the nectar thickened for right now. He is impulsive and distractable with cognitive testing. This is continuing to be completed at this time. ASSESSMENT: 1. Hypoxic encephalopathy. 2. Out of hospital cardiac arrest. 3. Urgent coronary artery bypass grafting x 1 on 11/13. 4. Acute renal insufficiency with improvement in his renal function. 5. Cardiomyopathy. 6. Arrhythmia, stable. 7. Aspiration pneumonia. 8. Dysphagia, nectar thickened liquids. 9. Pleural effusion, status post drainage. PLAN: The overall plan of care is based on the preadmission screen, post-admission physician evaluation and information garnered from therapy assessments. 1. Estimated length of stay is probably at least a couple of weeks and likely longer depending upon his needs. 2. Medical prognosis is reasonably good from a rehabilitation perspective. 3. Anticipated interventions includes the interdisciplinary acute inpatient rehabilitation program. 4. Anticipated functional outcomes would be for the patient to improve as far as his cognition and diet and swallowing as well as overall functional mobility and ADLs that he can hopefully return back to the home setting. 5. Discharge destination would be back to the home setting where he lives in a house. He does have involved family. 6. Expected therapy by discipline includes PT, OT and speech 1 hour per day [address] [address] REHAB UNIT PLAN OF CARE Name: GIBRAN DURANT Room #: 515-P ADM IN .R.#: [id number] Admission: 11/29/17 Attend Phys: Paul Delgado MD Discharge: Date of : 51 Report #: [id number] each five days a week throughout the duration of the acute inpatient rehabilitation stay. <ELECTRONICALLY SIGNED> By: Paul Delgado MD 12/02/17 1509 0928 1259 Paul Delgado MD /ZAINAB
--- NOTE | ~2017-11-29 | H ---
[facility] [place] [address] HISTORY AND PHYSICAL Name: GIBRAN DURANT Room #: 515-P [facility] IN M.R.#: [id number] Admission: 11/29/17 Attend Phys: Paul Delgado MD Discharge: Date of : 51 Report #: [id number] THIS REPORT FOR: //name// CC: João Delgado DATE OF SERVICE: 11/29/2017 HISTORY AND PHYSICAL AND POST-ADMISSION PHYSICIAN EVALUATION HISTORY OF PRESENT ILLNESS: This is a 62-year-old white male who had an out of hospital cardiac arrest while at a liquor store. He fell to the floor and CPR for 10 minutes initially before EMS arrived. He was noted to began asystole. Apparently, he then had chest compressions for another 35 minutes. He was defibrillated x 5. He was noted to be in ventricular fibrillation for part of the time. He was evaluated and underwent an urgent coronary artery bypass graft x 1 on 11/13. He was seen by neurology and was diagnosed with a hypoxic encephalopathy. There was noted aspiration pneumonia, acute respiratory failure, acute renal insufficiency, electrolyte abnormality, cardiomyopathy, insomnia, anxiety. He had a prolonged intensive care unit course. He ended up being extubated than reintubated, had a CPAP trial. He had a right-sided thoracentesis 550 mL, 11/22. Off the Precedex on 11/24, he became more impulsive, attempted to pull out his Hawkins and required four-point restraints. He pulled out his Dobhoff more than once and had problems with agitation. He gradually stabilized, was able to be transferred out of the intensive care unit. His renal function has improved. Last BUN 27, creatinine 4.1. His creatinine was up in the 7s before. Nephrology has been closely involved. He has required some nighttime sitters and his family is closely involved, but he is overall improved with his medical stability and encephalopathy to the point where he is now ready and has been admitted for acute in-hospital inpatient rehabilitation. PAST MEDICAL HISTORY: Includes tonsillectomy as a child; spontaneous pneumothorax with left thoracotomy, 07/27/1998; gout, high cholesterol, diverticulitis, history of small diverticula. HABITS: No history of tobacco or alcohol abuse noted. SOCIAL HISTORY: Lives in a house, 2 floors with the basement. There were some steps to get in. He has three children noted to be out of town and some sisters that live in the area. There is a daughter who is a nurse that is noted who lives out of town. REVIEW OF SYSTEMS: Did not offer any current complaints of chest pain, shortness of breath, or abdominal discomfort. PHYSICAL EXAMINATION: [facility] [address] [place] [address] HISTORY AND PHYSICAL Name: GIBRAN DURANT Room #: 515-P [facility] IN M.R.#: [id number] Admission: 11/29/17 Attend Phys: Paul Delgado MD Discharge: Date of : 51 Report #: [id number] GENERAL: A 62-year-old white male, in no obvious distress. VITAL SIGNS: Temperature 97.6, pulse 70, respirations 20, blood pressure 124/82. NEUROLOGIC: He thought he was at [facility] and was incorrect regarding the place. He also was incorrect regarding the year. He does follow basic one step commands however. He tends to defer answers to his sister. He will follow basic one step command. Facies appeared symmetric. HEENT: Appeared to be benign. CHEST: Some diffuse decrease breath sounds, otherwise sounds are clear. HEART: Sounded regular rate and rhythm. He does have the midline sternal incision that appears to be intact. ABDOMEN: Bowel sounds positive and nontender. GENITOURINARY AND RECTAL: Deferred. EXTREMITIES: He does have functional range of motion of both upper extremities with strength of grade 4-/5, DTRs are trace to 1. Lower extremities functional range of motion with strength grade 4-/5. DTRs are trace to 1. ASSESSMENT: A 62-year-old white male with the following problem list: 1. Hypoxic encephalopathy. 2. Out of hospital cardiac arrest. 3. Urgent coronary artery bypass grafting x 1 on 11/13. 4. Acute renal insufficiency with improvement in his renal function. 5. Cardiomyopathy. 6. Arrhythmia, stable. 7. Aspiration pneumonia. 8. Dysphagia. He was on honey thickened liquids and he is now been advanced to a nectar thickened liquid diet. 9. Pleural effusion status post drainage, right-sided thoracentesis 555 mL. PLAN: The patient is admitted for acute in-hospital inpatient rehabilitation. From my post-admission and physician evaluation perspective, there are no relevant changes since the preadmission screening. Please see the above review of prior and current medical and functional conditions and comorbidities. Please see the patient's previous and current functional status. As far as the risks and complications, he has the multiple medical comorbidities as noted above. Initial plan of care involves the interdisciplinary acute inpatient rehabilitation program with goal to maximizing his functional independence, so that he can hopefully return back to his prior living situation. His prognosis is overall reasonably good. We will have to see how he does with the significant hypoxic encephalopathy and the time period for which he was undergoing resuscitation for his cardiac arrest. Hopefully, he will have a decent cognitive recovery, but we will have to see how he does. As far his length of stay, it is probably going to be at least a couple of 2 to 3 weeks [facility] [address] [place] [address] HISTORY AND PHYSICAL Name: WINGCHRISTIANOGIBRAN Room #: 515-P ADM IN M.R.#: [id number] Admission: 11/29/17 Attend Phys: Paul Delgado MD Discharge: Date of : 51 Report #: [id number] depending upon his progress. Potential barriers would include his multiple medical comorbidities and decreased functional status. <ELECTRONICALLY SIGNED> By: Paul Delgado MD 12/02/17 1509 [id number] Paul Delgado MD /PMT
--- NOTE | ~2017-11-29 | HC ---
[facility] [place] [address] CONSULTATION Name: GIBRAN DURANT Room #: 513-P [facility] IN M.R.#: [id number] Admission: 11/29/17 Attend Phys: Paul Delgado MD Discharge: Date of : 51 Report #: [id number] THIS REPORT FOR: //name// CC: João Delgado DATE OF SERVICE: 12/01/2017 NEUROBEHAVIORAL STATUS EXAM: ATTENDING PHYSICIAN: Paul Delgado MD. FINANCIAL AID ADVISOR: Francisco Mckeon, PhD. CLINICAL PRESENTATION: The patient is a 62-year-old male admitted to the [facility] rehabilitation unit for comprehensive inpatient rehabilitation program to improve functional mobility, activities of daily living and self-care and mental status secondary to medical complexity and generalized debility following a cardiac arrest. The patient's history includes presence at a liquor store when he fell to the floor, sustaining a cardiac arrest. He received chest compressions on the scene and was defibrillated when emergency care arrived. He was noted to have ventricular fibrillation during his early resuscitation. His assessment on admission to rehab is hypoxic encephalopathy, [id number] cardiac arrest, urgent coronary artery bypass grafting x 1 on 11/13/2017, acute renal insufficiency with improvement in renal function, cardiomyopathy, stable arrhythmia, aspiration pneumonia, dysphagia and pleural effusion, status post drainage. A complete description of his medical condition and history can be found in his medical record. Neuropsychological consultation was requested in order to provide assistance in the assessment of cognitive and behavioral status and to provide recommendations and services. The patient was initially seen in the Intensive Care Unit upon his earlier recovery. At that time, the patient presented with delirium and intermittent agitation and restlessness. Prior to this most recent medical event, he was living independently in his own home. He is with 3 children. He had three sisters and one brother. One brother is . 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 He is a college graduate. The patient has a longstanding history of treatment for alcohol abuse as well as prior treatment for anxiety and depression. TECHNIQUES UTILIZED: Clinical interview, review of medical records, staff consultation and behavioral observation, mini mental status exam 2 standard version, brief abstract reasoning assessment, clock drawing. [address] [address] CONSULTATION Name: GIBRAN DURANT Room #: 513-P [facility] IN [facility].#: [id number] Admission: 11/29/17 Attend Phys: Paul Delgado MD Discharge: Date of : 53 Report #: [id number] EXAMINATION FINDINGS: The patient was alert and cooperative with the assessment. He presents with a vague awareness of events that preceded his hospitalization. He does not report auditory or visual hallucinations. There is no evidence of aphasia. He describes his symptoms to include sleep disturbance, decreased appetite, subjective anxiety and difficulty with memory. Rapid forgetting of recent information is described. He does not report subjective depression. He was alert and oriented during the assessment. Recognition of the contribution of alcohol abuse to his current condition is reported. He reports a desire to discontinue further alcohol use upon discharge. His performance on the MMSE 2 brief version is extremely low with a raw score of 11 of 16. He was 3 of 3 for initial registration, 5 of 5 for orientation to time and 2 of [address]. He was 1 of 3 for immediate recall of 3 items after a brief time delay and distraction. Performance was extremely low on the MMSE 2 standard version with a raw score of 20 of 30. He was 1 of 5 for serial sevens, 2 of 2 for naming, 1 of 1 for repetition, 3 of 3 for auditory comprehension. He could read and follow single command. The patient was able to write a sentence. He had difficulty with copying a simple geometric design and with visual spatial construction on clock drawing. Hand placement was generally within functional limits. Abstract reasoning test suggests impairment with a raw score of 5 of 8. Mildly impaired judgment is also suggested from subtest of the NAB Judgment test. 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 Unspecified anxiety disorder. RECOMMENDATIONS: Continued abstinence from alcohol is indicated. The patient is likely to require supervision and structure following discharge. Assistance with the management of medications, bill payment and nutrition will be necessary for him to manage adequate health-related responsibilities. Following discharge, the patient would benefit from a followup neuropsychological evaluation to clarify the severity of cognitive deficits. At this time, he will need to discontinue driving and obtain assistance to help compensate for variability in cognition. [facility] [address] [place] [address] CONSULTATION Name: GIBRAN DURANT Room #: 513-P [facility] IN .R.#: [id number] Admission: 11/29/17 Attend Phys: Paul Delgado MD Discharge: Date of : 51 Report #: [id number] Thank you very much for allowing me to provide the consultation on this patient. <ELECTRONICALLY SIGNED> By: Francisco Mckeon, PhD 12/09/17 1807 [id number] 2153 Francisco Mckeon, PhD /nt
[~2017-11-29 15:13] MED LIST changes: +LEXAPRO20 MG PO
[2017-11-29] MEDS ORDERED: LEVALBUTER0.63 MG/3 INH ×2 (17:14→17:15)
[2017-11-29] MEDS ORDERED: HYDROCODON-ACE1 EAC7 PO (17:14)
[2017-11-29] MEDS ORDERED: LOPRESSOR50 PO (17:14)
[2017-11-29] MEDS ORDERED: IPRATROPIU0.2 MG/1 M INH (17:14)
[2017-11-29] MEDS ORDERED: ENOXAPARIN30 MG/0.1 SUBQ (17:14)
[2017-11-29] MEDS ORDERED: PACERONE 200 M200 M1 PO (17:14)
[2017-11-29 19:38] VITALS: BP 141/94
[2017-11-30 05:35] LABS: HEMATOCRIT 25.2 % (42.0-52.0); HEMOGLOBIN 8.3 gm/dL (14.0-18.0); MCV 87.7 fL (80.0-100.0); RBC 2.87 mil/uL (4.50-6.00); RDW 14.7 % (10.5-14.5); WBC 10.5 thou/uL (4.0-11.0)
[2017-11-30 05:48] LABS: CALCIUM 7.9 mg/dL (8.5-10.1); MAGNESIUM 1.6 mg/dL (1.8-2.4)
[2017-11-30 05:51] LABS: POTASSIUM 2.9 mmol/L (3.5-5.1)
[2017-11-30 10:42] VITALS: BP 153/91
[2017-11-30 19:52] VITALS: BP 146/88
[2017-12-01 07:02] LABS: ALBUMIN 2.1 g/dL (3.4-5.0); CREATININE 3.8 mg/dL (0.7-1.3); PHOSPHORUS 4.2 mg/dL (2.5-4.9); POTASSIUM 3.4 mmol/L (3.5-5.1)
[2017-12-01 09:05] VITALS: BP 138/94
[2017-12-01 21:15] VITALS: BP 151/75
[2017-12-02 08:00] VITALS: BP 152/103
[2017-12-02 19:55] VITALS: BP 133/85
[2017-12-03 04:00] LABS: ALBUMIN 2.2 g/dL (3.4-5.0); CALCIUM 8.1 mg/dL (8.5-10.1); CREATININE 3.1 mg/dL (0.7-1.3); MAGNESIUM 1.7 mg/dL (1.8-2.4); PHOSPHORUS 3.7 mg/dL (2.5-4.9); POTASSIUM 4.1 mmol/L (3.5-5.1)
[2017-12-03 04:15] LABS: BASOPHILS 0.8 % (0.0-2.0); EOSINOPHILS 3.3 % (0.0-3.0); HEMATOCRIT 25.8 % (42.0-52.0); HEMOGLOBIN 8.5 gm/dL (14.0-18.0); LYMPHOCYTES 25.1 % (24.0-44.0); MCH 28.8 pg (26.0-34.0); MCHC 32.8 g/dL (28.0-37.0); MCV 87.9 fL (80.0-100.0); MONOCYTES 9.3 % (1.0-8.0); POLYS 61.5 % (36.0-66.0); RBC 2.94 mil/uL (4.50-6.00); RDW 15.2 % (10.5-14.5); WBC 9.7 thou/uL (4.0-11.0)
[2017-12-03 04:19] LABS: PLATELET COUNT 491 thou/uL (150-400)
[2017-12-03 09:00] VITALS: BP 131/79
[2017-12-03 20:11] VITALS: BP 143/82
[2017-12-04 05:57] LABS: ALBUMIN 2.1 g/dL (3.4-5.0); CALCIUM 7.7 mg/dL (8.5-10.1); PHOSPHORUS 3.3 mg/dL (2.5-4.9)
[2017-12-04 08:07] VITALS: BP 157/90
[2017-12-04 21:10] VITALS: BP 142/83
[2017-12-05 08:30] VITALS: BP 150/80
[2017-12-05 20:20] VITALS: BP 155/83
[2017-12-06 06:39] LABS: ALBUMIN 2.3 g/dL (3.4-5.0); CALCIUM 8.1 mg/dL (8.5-10.1); CREATININE 2.8 mg/dL (0.7-1.3); PHOSPHORUS 3.9 mg/dL (2.5-4.9); POTASSIUM 3.9 mmol/L (3.5-5.1)
[2017-12-06 08:08] VITALS: BP 147/85
[2017-12-06 21:13] VITALS: BP 131/87
[2017-12-07 06:38] LABS: ALBUMIN 2.2 g/dL (3.4-5.0); CREATININE 2.7 mg/dL (0.7-1.3); POTASSIUM 4.2 mmol/L (3.5-5.1)
[2017-12-07 08:00] VITALS: BP 145/73
[2017-12-07 20:21] VITALS: BP 120/76
[2017-12-08 20:08] VITALS: BP 147/78
[2017-12-09 06:08] LABS: ABSOLUTE NEUTROPHILS 4.3 thou/uL (1.4-8.2); BASOPHILS 1.4 % (0.0-2.0); EOSINOPHILS 4.6 % (0.0-3.0); HEMATOCRIT 26.5 % (42.0-52.0); HEMOGLOBIN 8.6 gm/dL (14.0-18.0); LYMPHOCYTES 22.7 % (24.0-44.0); MCH 28.5 pg (26.0-34.0); MCHC 32.4 g/dL (28.0-37.0); MCV 87.9 fL (80.0-100.0); MONOCYTES 10.2 % (1.0-8.0); PLATELET COUNT 390 thou/uL (150-400); POLYS 61.1 % (36.0-66.0); RBC 3.01 mil/uL (4.50-6.00); RDW 14.9 % (10.5-14.5)
[2017-12-09 06:25] LABS: ALBUMIN 2.2 g/dL (3.4-5.0); CALCIUM 7.7 mg/dL (8.5-10.1); CREATININE 2.3 mg/dL (0.7-1.3); MAGNESIUM 1.6 mg/dL (1.8-2.4); PHOSPHORUS 3.4 mg/dL (2.5-4.9); POTASSIUM 4.2 mmol/L (3.5-5.1); TOTAL BILIRUBIN 0.3 mg/dL (<0.1-1.0); TOTAL PROTEIN 6.4 g/dL (6.4-8.2)
[2017-12-09 08:39] VITALS: BP 152/84
[2017-12-09 19:52] VITALS: BP 137/82
[2017-12-10 08:00] VITALS: BP 165/91
[2017-12-10 20:04] VITALS: BP 125/67
[2017-12-11 08:10] VITALS: BP 142/73
[2017-12-11 16:55] VITALS: BP 142/73
[2017-12-11 19:32] VITALS: BP 110/71
[2017-12-12 06:33] LABS: ALBUMIN 2.5 g/dL (3.4-5.0); CALCIUM 8.6 mg/dL (8.5-10.1); CREATININE 2.1 mg/dL (0.7-1.3); PHOSPHORUS 3.9 mg/dL (2.5-4.9); POTASSIUM 4.7 mmol/L (3.5-5.1)
[2017-12-12] MEDS ORDERED: ASA5UEC PO (08:13)
[2017-12-12] MEDS ORDERED: REMERON 30 MG T30 M1 PO (08:13)
[2017-12-12] MEDS ORDERED: ATORVASTATIN CA40 MG PO (08:13)
[2017-12-12 08:15] VITALS: BP 106/90
[2017-12-12 09:55] VITALS: BP 142/73
[2017-12-12 10:02] VITALS: BP 142/73
[2017-12-12 10:34] VITALS: BP 142/73
[2017-12-12 11:58] VITALS: BP 142/73
[2017-12-12 14:50] VITALS: BP 142/73
== END 2017-12-12 14:00 | disposition home health service (06) | DRG 91 ==
LOC: ENTRNSPT 12-12 13:54 → EDTRNSPTSTS 12-12 13:56
PROVIDERS: Hospitalist; Internal Medicine Nephrology; Internal Medicine Pulmonary Disease; Nurse Practitioner; Registered Nurse
DX: G93.1 Anoxic brain damage, not elsewhere classified (principal); J69.0 Pneumonitis due to inhalation of food and vomit; I49.01 Ventricular fibrillation; J96.01 Acute respiratory failure with hypoxia; N17.9 Acute kidney failure, unspecified; I42.9 Cardiomyopathy, unspecified; J90 Pleural effusion, not elsewhere classified; K57.92 Diverticulitis of intestine, part unspecified, without perforation or abscess without bleeding; E46 Unspecified protein-calorie malnutrition; I25.10 Atherosclerotic heart disease of native coronary artery without angina pectoris; I49.9 Cardiac arrhythmia, unspecified; R13.10 Dysphagia, unspecified; F41.9 Anxiety disorder, unspecified; G47.00 Insomnia, unspecified; M10.9 Gout, unspecified; E78.00 Pure hypercholesterolemia, unspecified; R41.9 Unspecified symptoms and signs involving cognitive functions and awareness; D64.9 Anemia, unspecified; E87.6 Hypokalemia; N18.9 Chronic kidney disease, unspecified; E83.42 Hypomagnesemia; R53.81 Other malaise; Z95.1 Presence of aortocoronary bypass graft; Z68.29 Body mass index [BMI] 29.0-29.9, adult; Z79.899 Other long term (current) drug therapy; Z80.1 Family history of malignant neoplasm of trachea, bronchus and lung; Z82.49 Family history of ischemic heart disease and other diseases of the circulatory system
CPT/HCPCS: 10112

== ENCOUNTER → 2017-12-31 | Outpatient (CLI) | payer OTHER ==
[~2017-12-31] MED LIST changes: +ASA5UEC PO; +ATORVASTATIN CA40 MG PO; +ENOXAPARIN30 MG/0.1 SUBQ; +HYDROCODON-ACE1 EAC7 PO; +IPRATROPIU0.2 MG/1 M INH; +LEVALBUTER0.63 MG/3 INH; +LOPRESSOR50 PO; +PACERONE 200 M200 M1 PO; +REMERON 30 MG T30 M1 PO
== END ==
LOC: RAD 16:16
DX: M47.894 Other spondylosis, thoracic region (principal); Z95.1 Presence of aortocoronary bypass graft

== ENCOUNTER → 2018-10-14 | Outpatient (CLI) | payer OTHER | LOC: ULTRA 09:51 | DX: I65.23 Occlusion and stenosis of bilateral carotid arteries (principal) ==

== ENCOUNTER 2019-03-27 12:22 | Emergency (ER) | payer OTHER ==
[~2019-03-27] VITALS: Ht 175.3 cm; Wt 79.4 kg
[2019-03-27] MEDS ORDERED: MOBIC15 MG PO (13:31)
[2019-03-27 14:10] VITALS: BP 92/75
== END 2019-03-27 14:11 | disposition home or self-care (01) ==
LOC: ER 12:22
DX: S20.211A Contusion of right front wall of thorax, initial encounter (principal); M10.9 Gout, unspecified; E78.00 Pure hypercholesterolemia, unspecified; Z98.890 Other specified postprocedural states; X58.XXXA Exposure to other specified factors, initial encounter; Y93.89 Activity, other specified; Y92.89 Other specified places as the place of occurrence of the external cause; Y99.8 Other external cause status

== ENCOUNTER → 2019-06-04 | Outpatient (CLI) | payer OTHER ==
[~2019-06-04] MED LIST changes: +MOBIC15 MG PO
== END ==
LOC: RAD 10:22
DX: J90 Pleural effusion, not elsewhere classified (principal); J98.4 Other disorders of lung

== ENCOUNTER 2019-07-30 10:44 | Inpatient (IN) | payer OTHER ==
[~2019-07-30] VITALS: Ht 175.3 cm; Wt 79.4 kg
--- NOTE | ~2019-07-30 | HC ---
[facility] [address] CONSULTATION Name: GIBRAN DURANT Room #: 213-P [facility] IN M.R.#: [id number] Admission: 07/30/19 Attend Phys: Marquez Romo MD, Discharge: Date of : 51 Report #: [id number] THIS REPORT FOR: //name// CC: João Romo DATE OF SERVICE: 07/30/2019 REASON FOR CONSULTATION: Shortness of breath. HISTORY OF PRESENT ILLNESS: The patient is a 63-year-old gentleman with a complicated history including an out of hospital cardiac arrest in 2016. He was found asystolic on presentation, initially converted to ventricular fibrillation, received prolonged CPR, hypothermia protocol and ultimately underwent coronary angiography, which demonstrated severe ostial LAD disease. Single-vessel bypass grafting with a vein graft to the LAD was performed. His course was prolonged and complicated and notable for renal failure, aspiration, anoxic encephalopathy, transaminitis, all of which resolved. Initial ejection fraction was in the 25% range, which subsequently normalized with an EF of 50-55% in 09/2018. He now presents with progressive exertional breathlessness over the past couple of weeks, had a nonproductive cough. He is orthopneic. He denies lower extremity edema or paroxysmal nocturnal dyspnea. No chest heaviness or pressure. His primary initial symptom in 2017 was cardiac arrest without any pre-infarct or anginal warning symptom. ALLERGIES: There are no known drug allergies. MEDICATIONS: Include aspirin 81 mg daily, atorvastatin 40 mg daily, Lexapro 20 mg daily, trazodone 100 mg at night and Zyrtec. PAST MEDICAL HISTORY: Medical records have been reviewed and include a history of ischemic cardiomyopathy, coronary artery bypass grafting, tonsillectomy, pneumothorax in 1996, remote closed head injury, remote aspiration pneumonitis, remote out of hospital cardiac arrest. SOCIAL HISTORY: He is a nonsmoker, nondrinker. FAMILY HISTORY: Notable for father who had an NV at the age of 84. REVIEW OF SYSTEMS: All systems negative except as that noted above. PHYSICAL EXAMINATION: GENERAL: A pleasant gentleman in no distress. [facility] [address] [place] [address] CONSULTATION Name: GIBRAN DURANT Room #: 213-P [facility] IN M.R.#: [id number] Admission: 07/30/19 Attend Phys: Marquez Romo MD, Discharge: Date of : 51 Report #: [id number] VITAL SIGNS: Blood pressure is 108/80, heart rate of 90 and regular. He is afebrile. Weight is 175 pounds. HEENT: There are neither xanthelasma, subcutaneous xanthomata, oral mucosa or digital cyanosis or kyphoscoliosis present. CHEST: Clear to auscultation and percussion. CARDIAC: Regular rate and rhythm with normal S1, S2. No murmurs or rubs. ABDOMEN: Soft and nontender. EXTREMITIES: Without cyanosis, clubbing or edema. Radial pulses are 2+. NEUROLOGIC: He is alert with a nonfocal exam. LABORATORY DATA: EKG sinus rhythm with occasional premature ventricular complexes, poor R-wave progression and anterolateral symmetric T-wave inversion with QT prolongation, T-wave changes are new. IMPRESSION: 1. Exertional breathlessness suspicious for unstable angina. 2. Ischemic cardiomyopathy. 3. Hypertension. 4. Dyslipidemia. 5. Carotid stenosis, moderate bilateral less than 40%. 6. Chronic kidney disease. 7. History of single vessel bypass. RECOMMENDATIONS: 1. Rule out myocardial infarction. 2. Echocardiogram with Doppler. 3. Coronary angiography. I have outlined the angiographic procedure in detail including its associated risks. After a thorough discussion of the procedure, its risks and alternatives and after answering his questions, he is agreeable to proceeding. Further thoughts and plans will be forthcoming based on this evaluation. Thank you for asking me to participate in his care. By: [id number] [id number] Marquez Romo MD, FACC /nt
[2019-07-30 11:52] VITALS: BP 116/77
[2019-07-30 12:07] LABS: HEMATOCRIT 41.7 % (42.0-52.0); HEMOGLOBIN 13.6 gm/dL (14.0-18.0); MCH 27.1 pg (26.0-34.0); MCHC 32.6 g/dL (28.0-37.0); RBC 5.02 mil/uL (4.50-6.00); WBC 8.5 thou/uL (4.0-11.0)
--- NOTE | 2019-07-30 12:07 | NUR ---
PT ARRIVED TO UNIT AT APPROX [address] LION OFFICE. PT ALERT AND ORIENTED, VSS, ADMISSION COMPLETED BY ORIENTEE NURSE ALEN, TELE STRIP PRINTED AND DOCUMENTED. IV STARTED LEFT FOREARM. PT SOB AT TIMES, 2L O2 PUT ON PT. CONSENTS SIGNED FOR PROCEDURES ORDERED PER DR LION. WILL ACKNOWLEDGE AND IMPLEMENT FURTHER ORDERS. DENIES NEEDS AT THIS TIME.
[2019-07-30 12:27] LABS: ANION GAP 12 mmol/L (7-16); BUN 21 mg/dL (7-18); CALCIUM 9.3 mg/dL (8.5-10.1); CHLORIDE 98 mmol/L (98-107); CHOLESTEROL 119 mg/dL (<200); CO2 26 mmol/L (21-32); CREATININE 2.3 mg/dL (0.7-1.3); GLUCOSE 105 mg/dL (74-106); HDL CHOLESTEROL 31 mg/dL (>40); LDL CHOLESTEROL 68 mg/dL (<100); POTASSIUM 4.3 mmol/L (3.5-5.1); SODIUM 136 mmol/L (136-145); TC:HDL 3.8 Ratio (Not establshd); TRIGLYCERIDE 101 mg/dL (<150); VLDL 20 mg/dL (<40)
[2019-07-30 14:53] VITALS: BP 112/72
--- NOTE | 2019-07-30 17:14 | 2DMMODE ---
[facility] [address] [place] [address] 2 D/M-MODE ECHOCARDIOGRAM Name: GIBRAN DURANT Room #: 213-P ADM IN M.R.#: [id number] Admission: 07/30/19 Attend Phys: Marquez Romo, Discharge: Date of : 51 Date of Service: 07/30/19 1713 Report #: [id number] THIS REPORT FOR: //name// APPROVED REPORT Study performed: 07/30/2019 13:32:39 EXAM: Comprehensive 2D, Doppler, and color-flow Echocardiogram Patient Location: Echo lab Room #: 213 Status: routine BSA: 1.95 HR: 85 bpm BP: 116/77 mmHg Rhythm: Highly irregular Other Information Study Quality: Adequate Indications Dyspnea Hx: Cardiac arrest, CABG. 2D Dimensions RVDd: 39.74 mm IVSd: 11.21 (7-11mm) LVOT Diam: 19.51 (18-24mm) LVDd: 39.96 mm PWd: 11.22 (7-11mm) Ascending Ao: 35.14 (22-36mm) LVDs: 29.70 (25-40mm) Aortic Root: 35.94 mm Volumes Left Atrial Volume (Systole) Single Plane 4CH: 35.79 mL Single Plane 2CH: 44.61 mL LA ESV Index: 24.00 mL/m2 Aortic Valve AoV Peak Luis E.: 1.07 m/s AO Peak Gr.: 5.99 mmHg LVOT Max P.70 mmHg LVOT Max V: 0.81 m/s ANNABEL Vmax: 2.26 cm2 Mitral Valve E/A Ratio: 0.4 MV Decel. Time: 413.[address] [facility] [address] [place] [address] 2 D/M-MODE ECHOCARDIOGRAM Name: GIBRAN DURANT Room #: 213-P [facility] IN ..#: [id number] Admission: 07/30/19 Attend Phys: Marquez Romo, Discharge: Date of : 51 Date of Service: 07/30/19 1713 Report #: [id number] MV E Max Luis E.: 0.24 m/s MV A Luis E.: 0.68 m/s MV PHT: 120.01 ms Pulmonary Valve PV Peak Luis E.: 0.80 m/s PV Peak Gr.: 2.64 mmHg Tricuspid Valve RAP Estimate: 5.00 mmHg Left Ventricle The left ventricle is normal size. Regional wall motion is not well visualized but grossly normal. There is normal left ventricular wall thickness. Left ventricular systolic function is low normal. LVEF is 50%. Mild diastolic dysfunction Right Ventricle Right ventricle is at the upper limits of normal. The right ventricular systolic function is normal. Atria The left atrium size is normal. Right atrium is mildly dilated. Aortic Valve The aortic valve is normal in structure. No aortic regurgitation is present. There is no aortic valvular stenosis. Mitral Valve The mitral valve is normal in structure. There is no mitral valve regurgitation noted. No evidence of mitral valve stenosis. Tricuspid Valve The tricuspid valve is normal in structure. Trace tricuspid regurgitation. Unable to assess PA pressure. Pulmonic Valve The pulmonary valve is normal in structure. Trace pulmonic regurgitation. Great Vessels IVC is normal in size and collapses >50% with inspiration. Pericardium There is no pericardial effusion. [facility] [address] [place] [address] 2 D/M-MODE ECHOCARDIOGRAM Name: GIBRAN DURANT HOME Room #: 213-P ADM IN M.R.#: [id number] Admission: 07/30/19 Attend Phys: Marquez Romo, Discharge: Date of : 51 Date of Service: 07/30/191712 Report #: [id number] <Conclusion> Left ventricular systolic function is low normal. Regional wall motion is not well visualized but grossly normal. LVEF is 50%. Mild diastolic dysfunction The aortic valve is normal in structure. No aortic regurgitation or stenosis. The mitral valve is normal in structure. No mitral valve regurgitation Unable to assess pulmonary artery pressure. There is no pericardial effusion. <ELECTRONICALLY SIGNED> By: Marquez Romo MD, [facility] 07/30/191712 12 1713 Marquez Romo MD, FACC /INF
--- NOTE | 2019-07-30 17:21 | CATHLAB ---
[facility] [address] [place] [address] INVASIVE PROCEDURE REPORT Name: GIBRAN DURANT Room #: 213-P ADM IN M.R.#: [id number] Admission: 07/30/19 Attend Phys: Marquez Romo, Discharge: Date of : 51 Date of Service: 07/30/19 1720 Report #: [id number] THIS REPORT FOR: //name// APPROVED REPORT Study performed: 07/30/2019 15:12:33 Patient Details Patient Status: In-Patient Room #: The patient is a 63 year-old male Event Personnel Marquez Romo Carpenter Supervisor, Ruby Cramer RN RN, Corby Rutledge RTR Ada Degroot Amber Monitor Procedures Performed Art Access - R femoral artery* 45020 Initial Mod Sed Same Phys/QHP Gr5y [id number] Left Heart Cath Coronaries, Bypass Grafts [id number] LHCCORCABG Hemostasis w/ Mynx Indication Chest pain Procedure Narrative The patient was brought electively to the Cardiac Catheterization Laboratory and was prepped and draped in a sterile manner. The Right Groin^ was infiltrated with 1% Lidocaine subcutaneous anesthesia. A PINNACLE 6FR Sheath #[id number] sheath was inserted into the RFA^. Coronary angiography was performed using coronary diagnostic catheters. The right coronary system was accessed and visualized with a JR 4 catheter. The left coronary system was accessed and visualized with a JL 4 catheter. The left ventricle was accessed and visualized with a Pigtail catheter. Left ventricular/Aortic Valve gradient assessed via catheter pullback. Closure device was deployed with a 6 Fr Mynx. The patient tolerated the procedure well and there were no complications associated with the procedure. There was no hematoma. Intraoperative Conscious Sedation Sedation start time: 16:17 Case end Time: 16:40 Fentanyl 25 mcg Versed 0.5 mg Fluoro Time: 1.25 minutes Dose: DAP 2064.00 cGycm2 261 mGy [facility] [place] [address] INVASIVE PROCEDURE REPORT Name: GIBRAN DURANT Room #: 213-P [facility] IN M.R.#: [id number] Admission: 07/30/19 Attend Phys: Marquez Romo, Discharge: Date of : 51 Date of Service: 07/30/19 1720 Report #: [id number] Contrast Type and Amount: Visipaque 50 ml Coronary Angiography The patient's coronary anatomy is co- dominant. Diagnostic Cath Left Main Large, normal left main LAD Occluded LAD at its origin. Widely patent single saphenous vein graft to the mid LAD. Excellent runoff into the LAD system. Both proximal and distal anastomotic sites were angiographically normal. Circumflex Large, codominant circumflex. Mild scattered proximal and mid vessel plaquing OM1 Distally arising first marginal branch, angiographically normal OM2 Large second marginal branch, angiographically normal Right Coronary Codominant right coronary with 40-50% proximal to mid vessel stenosis Left Ventriculography Left Ventriculography was not performed. Ejection Fraction was 50% based off patient's Echocardiogram. Hemodynamics The aortic pressure is 112/74 mmHg with a mean of 91 mmHg. The left ventricular pressure is 117/4 mmHg with a mean of mmHg. The left ventricular end diastolic pressure is 12 mmHg. Conclusion 1. Low normal left heart hemodynamics and filling pressures 2. Normal left main 3. Occlusion of the proximal LAD with widely patent single saphenous vein graft to the LAD 4. Mild plaquing in a large, codominant circumflex 5. 40-50% proximal to mid right coronary artery stenosis Recommendations Aggressive Medical Therapy Medical Therapy <ELECTRONICALLY SIGNED> By: Marquez Romo MD, FACC 07/30/191719 19 19 Marquez Romo MD, FACC /INF
[2019-07-30 19:27] VITALS: BP 154/81
[2019-07-31 00:15] VITALS: BP 109/75
[2019-07-31 04:45] VITALS: BP 130/82
--- NOTE | 2019-07-31 05:28 | NUR ---
ASSUMED PT CARE 1900 WITH NO SIGN OF DISTRESS NOTED. PT IS ALERT AND ORIENTED. 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 RIGHT GROIN SITE INTACT, MONITOR FOR HEMATOMA. ASSESSMENT COMPLETED AND CHARTED. VITAL SIGNS STABLE. SCHEDULED MEDS ADMINISTERED TO PT. PT TOLERATED PO INTAKE. NO SIGNS OF DISTRESS NOTED THROUGHOUT THE NIGHT. NO PAIN VERBALIZED, DENIES ANY FURTHER NEEDS AT THIS TIME.
[2019-07-31 05:43] LABS: CALCIUM 8.8 mg/dL (8.5-10.1); CREATININE 2.1 mg/dL (0.7-1.3)
[2019-07-31] MEDS ORDERED: METOPROLOL SUCC25 M1 PO (07:36)
[2019-07-31] MEDS ORDERED: ASPIR 8181 MG PO (07:36)
[2019-07-31 07:42] VITALS: BP 136/92
[2019-07-31 10:25] VITALS: BP 130/81
--- NOTE | 2019-07-31 12:41 | NUR ---
[facility] CONSULT CANCELLED - PT DOES FEEL SAFE TO RETRUN HOME.
[2019-07-31 12:48] VITALS: BP 117/70
[2019-07-31 14:34] VITALS: BP 117/70
--- NOTE | 2019-07-31 14:34 | EKG ---
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: ROSA : 1955 Requested By: Marquez Romo Order Number: [id number] MD: Boris Estrada Measurements Intervals [place] Rate: 95 P: 52 CT: 165 QRS: -63 QRSD: 90 T: 159 QT: 411 QTc: 517 Interpretive Statements Sinus rhythm Left anterior fascicular block Abnormal R-wave progression, late transition Abnrm T, probable ischemia, anterolateral lds Prolonged QT interval Compared to ECG 11/16/2017 10:26:26 Prolonged QT interval now present Atrial flutter no longer present Possible ischemia still present Electronically Signed On 07-31-2019 14:34:04 CDT by Boris Estrada [email or web address] <ELECTRONICALLY SIGNED> By: Boris Estrada MD 07/31/19 1434 1141 1141 Boris Estrada MD /EPI
--- NOTE | 2019-07-31 14:48 | EKG ---
[place] [address] [facility] [place] [address] ELECTROCARDIOGRAM REPORT Name: GIBRAN DURANT Room #: 213-P ADM IN M.R.#: [id number] Admission: 07/30/19 Attend Phys: Marquez Romo MD, Discharge: Date of : 51 Report #: [id number] THIS REPORT FOR: //name// [facility] Test Date: 2019-07-31 Test Time: 07:44:48 Pat Name: GIBRAN DURANT Department: Room: 213 P Gender: M Admissions Rn: ROSA : 1955 Requested By: Marquez Romo Order Number: [id number] MD: Boris Estrada Measurements Intervals [place] Rate: 76 P: 9 PA: 185 QRS: -49 QRSD: 96 T: 174 QT: 492 QTc: 554 Interpretive Statements Sinus rhythm Left anterior fascicular block Abnormal R-wave progression, late transition Abnrm T, probable ischemia, anterolateral lds Prolonged QT interval Compared to ECG 11/16/2017 10:26:26 Prolonged QT interval now present Possible ischemia still present Electronically Signed On 07-31-2019 14:48:40 CDT by Boris Estrada [email or web address] <ELECTRONICALLY SIGNED> By: Boris Estrada MD 07/31/19 1448 0744 0744 Boris Estrada MD /EPI
--- NOTE | 2019-07-31 14:59 | NUR ---
ASSESSMENT CHARTED - MEDS PER JAN - NO CO'S OF PAIN OR NAUSEA. COLE DIET AND FLUIDS. UP AD STEPHANIE IN ROOM - SOB WITH EXERTTION - SEEN BY DR PATRICE DENNIS THIS AM TESTING COMPLETED. PT HOME THIS AFTERNOON- IV AND MONITOR REMVED PRIOR TO D/C. INSTRUCTION RE HOME MEDS/ CARE AND FOLLOW UP GIVEN TO PATIENT- STATED UNDERSTANDING OF INSTRUCTION GIVEN TO HIM - LEAVING UNIT VIA WHEELCHAIR - HOME VIA PVT VEHICLE. NO CO'S AT TIME OF D/C.
== END 2019-07-31 15:15 | disposition home or self-care (01) | DRG 287 ==
LOC: 2N 10:44 → ENTRNSPT 07-31 14:58 → EDTRNSPTSTS 07-31 15:01 → 2N 07-31 15:15
PROVIDERS: ADMIT Internal Medicine
PROC: B212YZZ Fluoroscopy of Single Coronary Artery Bypass Graft using Other Contrast (ICD-10-PCS; principal; 2019-07-30)
PROC: B211YZZ Fluoroscopy of Multiple Coronary Arteries using Other Contrast (ICD-10-PCS; principal; 2019-07-30)
PROC: 4A023N7 Measurement of Cardiac Sampling and Pressure, Left Heart, Percutaneous Approach (ICD-10-PCS; principal; 2019-07-30)
DX: I25.10 Atherosclerotic heart disease of native coronary artery without angina pectoris (principal); J44.1 Chronic obstructive pulmonary disease with (acute) exacerbation; I25.5 Ischemic cardiomyopathy; I10 Essential (primary) hypertension; E78.5 Hyperlipidemia, unspecified; I65.23 Occlusion and stenosis of bilateral carotid arteries; N18.9 Chronic kidney disease, unspecified; Z79.82 Long term (current) use of aspirin; Z79.899 Other long term (current) drug therapy; Z95.1 Presence of aortocoronary bypass graft; Z82.49 Family history of ischemic heart disease and other diseases of the circulatory system
CPT/HCPCS: 10081

== ENCOUNTER → 2019-08-13 | Outpatient (CLI) | payer OTHER ==
[~2019-08-13] MED LIST changes: +ASPIR 8181 MG PO; +METOPROLOL SUCC25 M1 PO
[2019-08-13 10:45] LABS: ABSOLUTE NEUTROPHILS 8.1 thou/uL (1.4-8.2); BASOPHILS 0.6 % (0.0-2.0); EOSINOPHILS 1.4 % (0.0-3.0); HEMATOCRIT 45.4 % (42.0-52.0); HEMOGLOBIN 14.5 gm/dL (14.0-18.0); LYMPHOCYTES 20.6 % (24.0-44.0); MCH 26.3 pg (26.0-34.0); MCHC 31.8 g/dL (28.0-37.0); MCV 82.5 fL (80.0-100.0); MONOCYTES 5.9 % (1.0-8.0); PLATELET COUNT 530 thou/uL (150-400); POLYS 71.5 % (36.0-66.0); RDW 18.8 % (10.5-14.5); WBC 11.3 thou/uL (4.0-11.0)
[2019-08-13 10:57] LABS: ALBUMIN 3.1 g/dL (3.4-5.0); CALCIUM 9.3 mg/dL (8.5-10.1); CREATININE 1.7 mg/dL (0.7-1.3); POTASSIUM 4.2 mmol/L (3.5-5.1); TOTAL BILIRUBIN 0.3 mg/dL (<0.1-1.0); TOTAL PROTEIN 6.9 g/dL (6.4-8.2)
[2019-08-13 11:15] LABS: ANISOCYTOSIS 1+; PLATELET ESTIMATE NORMAL
== END ==
LOC: CAT 10:12
PROVIDERS: Pediatrics
DX: J98.4 Other disorders of lung (principal); R06.02 Shortness of breath

== ENCOUNTER 2019-08-18 10:12 | Emergency (ER) | payer OTHER ==
[~2019-08-18] VITALS: Ht 175.3 cm; Wt 79.4 kg
[2019-08-18 10:42] LABS: BASOPHILS 0.8 % (0.0-2.0); EOSINOPHILS 1.3 % (0.0-3.0); HEMATOCRIT 47.2 % (42.0-52.0); HEMOGLOBIN 15.1 gm/dL (14.0-18.0); MCH 26.5 pg (26.0-34.0); MCHC 32.1 g/dL (28.0-37.0); MCV 82.7 fL (80.0-100.0); MONOCYTES 10.8 % (1.0-8.0); PLATELET COUNT 461 thou/uL (150-400); POLYS 68.1 % (36.0-66.0); RBC 5.71 mil/uL (4.50-6.00); RDW 19.2 % (10.5-14.5); WBC 11.8 thou/uL (4.0-11.0)
[2019-08-18 10:47] LABS: ANION GAP 5 mmol/L (7-16); BUN 24 mg/dL (7-18); CALCIUM 9.3 mg/dL (8.5-10.1); CHLORIDE 100 mmol/L (98-107); CO2 31 mmol/L (21-32); CREATININE 1.7 mg/dL (0.7-1.3); GLUCOSE 100 mg/dL (74-106); POTASSIUM 4.8 mmol/L (3.5-5.1); SODIUM 136 mmol/L (136-145)
[2019-08-18 10:56] LABS: TROPONIN-I <0.06 ng/mL (<0.06)
[2019-08-18 11:01] VITALS: BP 128/74
[2019-08-18 12:27] LABS: PLATELET ESTIMATE NORMAL
[2019-08-18 12:28] LABS: ANISOCYTOSIS 1+
--- NOTE | 2019-08-19 08:00 | EKG ---
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: : 1955 Requested By: Bryan Mtz Order Number: [id number] MD: Jorge Martinez Measurements Intervals [place] Rate: 73 P: 25 [place]: 181 QRS: -48 QRSD: 102 T: 78 QT: 398 QTc: 439 Interpretive Statements Sinus rhythm Ventricular bigeminy Left anterior fascicular block Abnormal R-wave progression, late transition Nonspecific T abnormalities, lateral leads Compared to ECG 07/31/2019 07:44:48 Electronically Signed On 08-19-2019 8:00:01 CDT by Jorge Martinez [email or web address] <ELECTRONICALLY SIGNED> By: Jorge Martinez MD 08/19/19 0800 1014 1014 Jorge Martinez MD /[facility]
== END 2019-08-18 11:57 | disposition home or self-care (01) ==
LOC: ER 10:12
PROVIDERS: Emergency Medicine
DX: I95.9 Hypotension, unspecified (principal); R42 Dizziness and giddiness; E78.00 Pure hypercholesterolemia, unspecified; M10.9 Gout, unspecified; Z90.49 Acquired absence of other specified parts of digestive tract

== ENCOUNTER → 2019-09-25 | Outpatient (CLI) | payer OTHER ==
--- NOTE | 2019-09-30 17:36 | SLE ---
[facility] [place] [address] POLYSOMNOGRAPHY STUDY Name: GIBRAN DURANT Room #: REG CLI [facility]#: [id number] Admission: 09/25/19 Attend Phys: Tim Potter MD Discharge: Date of : 51 Report #: [id number] THIS REPORT FOR: //name// CC: Tim Johnson DATE OF SERVICE: 09/25/2019 ATTENDING PHYSICIAN: Dr. Cole Johnson. SUBJECTIVE: The patient is 64 years old, who was diagnosed with severe sleep apnea based on a home sleep study along with ifwmachl-qb-pnrmmr nocturnal hypoxia. The patient was referred back for in-lab CPAP titration study. During the night study, the patient spent 521 minutes in bed and slept for 263 minutes with a sleep efficiency of 50%, which was low. Sleep latency was 61 minutes with a REM latency of 266 minutes. Sleep architecture showed normal stage 1 sleep, increased stage 2 sleep, absent slow wave and normal REM sleep. EKG monitoring revealed an average heart rate of 63 beats per minute. Frequent PVCs observed. Couplets and triplets were also seen. PLMS were seen at an index of 39 per hour and 7.5 per hour caused EEG arousals. The patient was started on CPAP at 5 cm of water and titrated up to 16 cm of water. At the final pressure, the patient slept for 17 minutes with no REM sleep. The patient's AHI was reduced to 10.6 per hour and oxygen saturations remained above 88%. At a lower pressure, the patient did better with 35 minutes of sleep. The patient's AHI was 3.4 per hour; however, no supine REM sleep was observed. I would recommend a final pressure of 17 cm of water to be used on a nightly basis. IMPRESSION: 1. Severe sleep apnea diagnosed by previous sleep study. 2. Moderate periodic limb movements of sleep. 3. Reduced sleep efficiency of 50%, resulting from sleep onset and sleep maintenance insomnia. 4. Abnormal EKG. RECOMMENDATIONS: 1. CPAP at 17 cm of water should be used on a nightly basis. 2. Follow up in 4 to 6 weeks to assess compliance with CPAP and to document clinical improvement. 3. The patient should also be further evaluated for symptoms of restless legs [facility] [address] [place] [address] POLYSOMNOGRAPHY STUDY Name: GIBRAN DURANT SHANICE Room #: REG [facility].#: [id number] Admission: 09/25/19 Attend Phys: Tim Potter MD Discharge: Date of : 51 Report #: [id number] during the day. 4. 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 5. Cautioned regarding driving until symptoms of sleep apnea resolve with the above recommendations. 6. If the patient's insomnia persists despite effective use of CPAP, then it should be further evaluated and treated according to the etiology. 7. The patient had abnormal EKG with frequent PVCs and couplets and triplets. Cardiology followup if clinically indicated. <ELECTRONICALLY SIGNED> By: Tim Potter MD 09/30/19 1736 0147 0205 Tim Potter MD /nt
== END ==
LOC: SLEEPLAB 20:58
DX: G47.33 Obstructive sleep apnea (adult) (pediatric) (principal); G47.30 Sleep apnea, unspecified

== ENCOUNTER → 2019-12-21 | Outpatient (CLI) | payer OTHER | LOC: CAT 08:44 | DX: J47.9 Bronchiectasis, uncomplicated (principal); J98.4 Other disorders of lung; J90 Pleural effusion, not elsewhere classified; R91.1 Solitary pulmonary nodule; J84.10 Pulmonary fibrosis, unspecified; I70.0 Atherosclerosis of aorta; K76.0 Fatty (change of) liver, not elsewhere classified; M47.814 Spondylosis without myelopathy or radiculopathy, thoracic region; M25.78 Osteophyte, vertebrae ==

== ENCOUNTER → 2020-03-24 | Outpatient (CLI) | payer OTHER | LOC: SJCVC 10:35 | DX: I44.4 Left anterior fascicular block (principal); R94.31 Abnormal electrocardiogram [ECG] [EKG]; I25.5 Ischemic cardiomyopathy; I65.23 Occlusion and stenosis of bilateral carotid arteries; I12.9 Hypertensive chronic kidney disease with stage 1 through stage 4 chronic kidney disease, or unspecified chronic kidney disease; N18.9 Chronic kidney disease, unspecified; E78.5 Hyperlipidemia, unspecified; G47.33 Obstructive sleep apnea (adult) (pediatric); Z95.1 Presence of aortocoronary bypass graft; Z82.49 Family history of ischemic heart disease and other diseases of the circulatory system; Z79.899 Other long term (current) drug therapy ==

== ENCOUNTER 2020-03-31 15:52 | Inpatient (IN) | payer OTHER ==
[~2020-03-31] VITALS: Ht 175.3 cm; Wt 79.4 kg
[2020-03-31 15:53] VITALS: BP 100/70
[2020-03-31 16:24] LABS: HEMATOCRIT 45.8 % (42.0-52.0); MCH 27.7 pg (26.0-34.0); MCHC 32.7 g/dL (28.0-37.0); MCV 84.4 fL (80.0-100.0); PLATELET COUNT 376 thou/uL (150-400); RBC 5.42 mil/uL (4.50-6.00); RDW 17.8 % (10.5-14.5); WBC 6.6 thou/uL (4.0-11.0)
[2020-03-31 16:27] LABS: ANION GAP 9 mmol/L (7-16); BUN 21 mg/dL (7-18); CALCIUM 8.9 mg/dL (8.5-10.1); CHLORIDE 97 mmol/L (98-107); CO2 27 mmol/L (21-32); CREATININE 2.1 mg/dL (0.7-1.3); GLUCOSE 117 mg/dL (74-106); POTASSIUM 3.8 mmol/L (3.5-5.1); SODIUM 133 mmol/L (136-145)
[2020-03-31 16:36] LABS: ALBUMIN 3.4 g/dL (3.4-5.0); SGOT 25 U/L (15-37); SGPT 29 U/L (30-65); TOTAL BILIRUBIN 0.8 mg/dL (<0.1-1.0); TOTAL PROTEIN 7.7 g/dL (6.4-8.2); TROPONIN-I <0.06 ng/mL (<0.06)
[2020-03-31 16:56] LABS: PLATELET ESTIMATE NORMAL
[2020-03-31 17:35] LABS: CHOLESTEROL 153 mg/dL (<200); HDL CHOLESTEROL 42 mg/dL (>40); LDL CHOLESTEROL 82 mg/dL (<100); TC:HDL 3.6 Ratio (Not establshd); TRIGLYCERIDE 148 mg/dL (<150); VLDL 30 mg/dL (<40)
[2020-03-31] MEDS ORDERED: ZETIA10 MG PO (17:35)
[2020-03-31] MEDS ORDERED: WELLBUTRIN SR150 M1 PO (17:35)
[2020-03-31] MEDS ORDERED: MORGIDOX50 MG PO (17:36)
[2020-03-31] MEDS ORDERED: CRESTOR40 MG PO (17:36)
[2020-03-31] MEDS ORDERED: TRELEGY ELLIPT1 EACH INH (17:37)
[2020-03-31] MEDS ORDERED: TRAZODONE HCL100 MG PO (17:38)
[2020-03-31] MEDS ORDERED: NEXIUM20 M1 PO (17:38)
[2020-03-31] MEDS ORDERED: QUETIAPINE FUMA50 M1 PO (17:39)
[2020-03-31] MEDS ORDERED: VALACYCLOVIR500 MG PO (17:39)
[2020-03-31 17:40] VITALS: BP 106/83
[2020-03-31 19:30] VITALS: BP 143/89
[2020-03-31 19:37] VITALS: BP 134/99
[2020-03-31 23:46] VITALS: BP 119/76
--- NOTE | 2020-04-01 00:57 | NUR ---
ADMIT;PT ADMITTED FROM ED WITH AFLUTTER.ARRIVED TO UNIT VIA CART,AMBULATED WITH SBA FROM THE DOOR TO BED,GAIT STEADY.PT REPORTED FALL IN AFEW WEEKS AGO AT HOME.A/OX4.VSS.AFLUTTER ON MONITOR W/HR IN 120S AND SUSTAINING.MEDS GIVEN ORDERED.CARDIZEM DRIP STARTED WELL.ADMISSION ASSESSMENT COMPLETED DOCUMENTED.PT DENIES PAIN OR ANY DISTRESS.POC IS TO CONT TO MONITOR HR.
[2020-04-01 03:58] VITALS: BP 134/80
[2020-04-01] MEDS ORDERED: ELIQUIS5 MG PO (08:24)
[2020-04-01] MEDS ORDERED: PACERONE 200 M200 M1 PO ×3 (08:25→09:31)
--- NOTE | 2020-04-01 08:35 | EKG ---
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: [place] : 1955 Requested By: Leonel Moyer Order Number: [id number] MD: Marquez Romo Measurements Intervals [place] Rate: 151 P: [place]: QRS: -19 QRSD: 87 T: 27 QT: 311 QTc: 494 Interpretive Statements Atrial flutter with predominant 2:1 AV block Inferior infarct, age indeterminate Poor R wave progression Compared to ECG 08/18/2019 10:14:25 Atrial flutter has replaced sinus rhythm Electronically Signed On 04-01-2020 8:33:25 CDT by Marquez Romo [email or web address] <ELECTRONICALLY SIGNED> By: Marquez Romo MD, FAC 04/01/20 0833 1549 1549 Marquez Romo MD, FAC /EPI
--- NOTE | 2020-04-01 08:41 | EKG ---
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: : 1955 Requested By: Leonel Moyer Order Number: [id number] MD: Marquez Romo Measurements Intervals [place] Rate: 125 P: [place]: QRS: -82 QRSD: 102 T: -58 QT: 351 QTc: 507 Interpretive Statements Atrial flutter with variable AV block Left anterior fascicular block Poor R wave progression Compared to ECG 08/18/2019 10:14:25 Heart rate has slowed Electronically Signed On 04-01-2020 8:39:55 CDT by Marquez Romo [email or web address] <ELECTRONICALLY SIGNED> By: Marquez Romo MD, [facility] 04/01/20 0839 02 02 Marquez Romo MD, [facility] /EPI
--- NOTE | 2020-04-01 08:46 | EKG ---
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 : 1955 Requested By: Marquez Romo Order Number: [id number] MD: Marquez Romo Measurements Intervals [place] Rate: 94 P: [place]: QRS: -27 QRSD: 95 T: 72 QT: 440 QTc: 551 Interpretive Statements Atrial flutter Ventricular premature complex Possible inferior infarct, age indeterminate Poor R wave progression Compared to ECG 08/18/2019 10:14:25 Heart rate has slowed Electronically Signed On 04-01-2020 8:44:51 CDT by Marquez Romo [email or web address] <ELECTRONICALLY SIGNED> By: Marquez Romo MD, [facility] 04/01/20 0844 0710 Marquez Romo MD, [facility] /EPI
--- NOTE | 2020-04-01 08:49 | EKG ---
[facility] [place] [address] ELECTROCARDIOGRAM REPORT Name: CARLEENGIBRAN Chin Room #: 207-P ADM IN M.R.#: [id number] Admission: 03/31/20 Attend Phys: Miguel A Kaur Discharge: Date of : 51 Report #: [id number] THIS REPORT FOR: cc: Marquez Romo MD [facility] Marquez Romo MD [facility] Marquez Romo MD 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 04/01/2048 6 6 Marquez Romo MD, [facility] /EPI
--- NOTE | 2020-04-01 08:58 | TEE ---
[facility] [place] [address] TRANSESOPHAGEAL ECHOCARDIOGRAM Name: GIBRAN DURANT Room #: 207-P ADM IN M.R.#: [id number] Admission: 03/31/20 Attend Phys: Miguel A Marsh Natasha Discharge: Date of : 51 Report #: [id number] THIS REPORT FOR: cc: Marquez Romo MD [facility] Marquez Romo MD [facility] Marquez Romo MD [facility] ~ APPROVED REPORT Study performed: 04/01/2020 07:24:07 EXAM: Transesophageal Echocardiogram with Doppler and Cardioversion Patient Location: CV holding Status: routine BSA: 1.95 HR: 95 bpm BP: 110/80 mmHg Rhythm: Atrial Flutter Other Information Study Quality: Adequate Echo Enhancing Agent Indication: Rule out Shunt Agent(s) / Amount(s) Used: Agitated Saline 6 cc Procedure After obtaining informed consent, patient underwent transesophageal echo in the [facility]. Type of Sedation : Conscious Sedation Sedation was administered by Rachael Santillan RN. Sedation start time: 7:51 Case end Time: 8:02 Sedation was achieved intravenously with: Versed (6) Fentanyl (50) Transesophageal probe was inserted and advanced into esophagus without difficulty by Marquez Romo MD. Echo enhancement indication: R/O Septal defect. Echo enhancement agent administered: Agitated Saline The NITHIN was performed without complications. Synchronized Cardioversion attempted: Successful Synchronized Cardioversion acheived with 20 Joules after 1 attempt(s). Rhythm following Synchronized Cardioversion: Normal Sinus Rhythm Throughout the procedure, the blood pressure, pulse oximetry, cardiac [facility] [address] [place] [address] TRANSESOPHAGEAL ECHOCARDIOGRAM Name: WINGCHRISTIANOGIBRAN Room #: 207-P [facility]#: [id number] Admission: 03/31/20 Attend Phys: Miguel A Booth Discharge: Date of : 51 Report #: [id number] rhythm, and rate were monitored. The patient tolerated the procedure without adverse effects. Recovery from conscious sedation was uneventful and vital signs were stable. Left Ventricle The left ventricle is normal size. The left ventricular systolic function is normal. The left ventricular ejection fraction is within the normal range. LVEF is 55%. Right Ventricle The right ventricle is normal size. The right ventricular systolic function is normal. Atria The left atrium size is normal. No thrombus is visualized in the left atrium or appendage. No shunting by contrast bubble injection. Right atrium is moderately dilated. Aortic Valve The aortic valve is normal in structure, trileaflet. No aortic regurgitation is present. There is no aortic valvular stenosis. Mitral Valve The mitral valve is normal in structure. Trace mitral regurgitation. No evidence of mitral valve stenosis. Tricuspid Valve The tricuspid valve is normal in structure. There is no tricuspid valve regurgitation noted. Pulmonic Valve The pulmonary valve is normal in structure. There is no pulmonic valvular regurgitation. Great Vessels The aortic root is normal in size. The ascending aorta is normal in size. IVC is normal in size and collapses >50% with inspiration. Pericardium There is no pericardial effusion. <Conclusion> The left ventricular systolic function is normal. [facility] [address] [address] TRANSESOPHAGEAL ECHOCARDIOGRAM Name: GIBRAN DURANT Room #: 207-P [facility] IN ..#: [id number] Admission: 03/31/20 Attend Phys: Miguel A Booth Discharge: Date of : 51 Report #: [id number] LVEF is 55%. Left atrium is normal in size. Right atrium is moderately dilated. No thrombus is visualized in the left atrium or appendage. No shunting by contrast bubble injection. The aortic valve is normal in structure, trileaflet. No aortic regurgitation or stenosis The mitral valve is normal in structure. Trace mitral regurgitation. There is no pericardial effusion. Successful cardioversion of atrial flutter to sinus rhythm with a single 20 J biphasic synchronous shock. <ELECTRONICALLY SIGNED> By: Marquez Romo MD, FACC 04/01/2056 5 5 Marquez Romo MD, FACC /INF
[2020-04-01 10:10] VITALS: BP 101/74
[2020-04-01 12:00] VITALS: BP 116/70
[2020-04-01 16:00] VITALS: BP 113/87
--- NOTE | 2020-04-01 20:14 | NUR ---
RECEIVED PT'S CARE AROUND 0720; PT. ON BED; AOX4; GONE FOR PROCEDURE DURING SHIFT CHANGED; CAME BACK AFTER 1000; PT. 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 UPDATE ABOUT D/C PROCESS;
[2020-04-01 20:20] VITALS: BP 113/87
== END 2020-04-01 20:41 | disposition home or self-care (01) | DRG 309 ==
LOC: ER 15:52 → 2N 17:02 → EROBS 17:02 → 2N 19:38
PROVIDERS: Emergency Medicine; ADMIT Hospitalist
DX: I48.92 Unspecified atrial flutter (principal); D68.59 Other primary thrombophilia; M10.9 Gout, unspecified; E78.00 Pure hypercholesterolemia, unspecified; I25.10 Atherosclerotic heart disease of native coronary artery without angina pectoris; I25.5 Ischemic cardiomyopathy; G47.33 Obstructive sleep apnea (adult) (pediatric); N18.9 Chronic kidney disease, unspecified; E78.5 Hyperlipidemia, unspecified; J44.9 Chronic obstructive pulmonary disease, unspecified; Z95.1 Presence of aortocoronary bypass graft; Z79.899 Other long term (current) drug therapy
CPT/HCPCS: 10081

== ENCOUNTER → 2020-05-16 | Outpatient (CLI) | payer OTHER ==
[~2020-05-16] MED LIST changes: +CRESTOR40 MG PO; +ELIQUIS5 MG PO; +MORGIDOX50 MG PO; +NEXIUM20 M1 PO; +QUETIAPINE FUMA50 M1 PO; +TRAZODONE HCL100 MG PO; +TRELEGY ELLIPT1 EACH INH; +VALACYCLOVIR500 MG PO; +WELLBUTRIN SR150 M1 PO; +ZETIA10 MG PO
== END ==
LOC: SJCVC 11:24
PROVIDERS: ATTEND Internal Medicine
DX: I44.4 Left anterior fascicular block (principal); R94.31 Abnormal electrocardiogram [ECG] [EKG]; I25.810 Atherosclerosis of coronary artery bypass graft(s) without angina pectoris; I47.1 Supraventricular tachycardia; E78.5 Hyperlipidemia, unspecified; G47.33 Obstructive sleep apnea (adult) (pediatric); I65.23 Occlusion and stenosis of bilateral carotid arteries; J43.9 Emphysema, unspecified; N18.9 Chronic kidney disease, unspecified; Z95.1 Presence of aortocoronary bypass graft; Z79.82 Long term (current) use of aspirin; Z79.899 Other long term (current) drug therapy; Z82.49 Family history of ischemic heart disease and other diseases of the circulatory system

== ENCOUNTER → 2020-05-19 | Outpatient (CLI) | payer OTHER | LOC: SJCVC 14:22 | PROVIDERS: ATTEND Internal Medicine Cardiovascular Disease | DX: I48.3 Typical atrial flutter (principal); I25.10 Atherosclerotic heart disease of native coronary artery without angina pectoris; I12.9 Hypertensive chronic kidney disease with stage 1 through stage 4 chronic kidney disease, or unspecified chronic kidney disease; N18.9 Chronic kidney disease, unspecified; E78.5 Hyperlipidemia, unspecified; J44.9 Chronic obstructive pulmonary disease, unspecified; Z79.899 Other long term (current) drug therapy; Z79.82 Long term (current) use of aspirin; Z82.49 Family history of ischemic heart disease and other diseases of the circulatory system ==

== ENCOUNTER → 2020-06-06 | Outpatient (CLI) | payer OTHER ==
[~2020-06-06] VITALS: Ht 175.3 cm; Wt 81.6 kg
[~2020-06-06] MED LIST changes: +CARDIZEM SR 60M60 MG PO; +DESYREL150 MG PO; +PROVENTIL HFA6.7 G1 INH; +VIBRAMYCIN 100100 MG PO
--- NOTE | ~2020-06-06 | P ---
[facility] [place] [address] PROCEDURE REPORT Name: GIBRAN DURANT Room #: REG [facility]#: [id number] Admission: 06/06/20 Attend Phys: Jorge Martinez MD Discharge: Date of : 51 Report #: [id number] THIS REPORT FOR: cc: João Elam MD, Bernard O. MD Couchonnal, Luis F. MD ~ CC: João Johnson DATE OF SERVICE: 06/06/2020 SVT ABLATION PREOPERATIVE DIAGNOSIS: Atrial flutter. POSTOPERATIVE DIAGNOSIS: Atrial flutter. PROCEDURES PERFORMED: 1. SVT ablation, CPT code 56357. 2. EP with left atrial pacing and recording, CPT code 10326. 3. Program stimulation pacing after IV drug infusion, CPT code 76289. 4. Intracardiac echocardiography, CPT code 41652. HISTORY OF PRESENT ILLNESS: The patient is a 64-year-old male with a history of coronary artery disease, status post CABG, recently with an episode of typical atrial flutter, status post DC cardioversion. He does not want to be on antiarrhythmic drugs long-term and is here for ablation. ANESTHESIA: The patient underwent MAC anesthesia with no anesthesia related complications. DESCRIPTION OF PROCEDURE: The patient underwent informed consent. We discussed the details of the procedure including the risks, which include but not limited to bleeding, vascular damage, stroke, OK as well as damage to sauk-suiattle conduction system requiring pacemaker. He understood these risks and is willing to proceed. The patient was brought to the EP laboratory in fasting and unsedated state, prepped and draped in a sterile fashion. I obtained access in the right femoral vein x 4, placing an 8, 6, 7 and 9-Montserratian short sheath using the modified Seldinger technique. Next, under fluoroscopy, 3 quadripolar catheters and a Decapolar catheter placed in the coronary sinus. Of note, the coronary sinus would fall out quite frequently throughout the procedure. At baseline, the patient was in sinus rhythm with a sinus cycle length of 615 milliseconds, ND interval 190 milliseconds, QRS duration 100 milliseconds, QT interval 380 milliseconds, AH interval 160 milliseconds, and HV interval of 39 milliseconds. [facility] [address] [place] [address] PROCEDURE REPORT Name: WINGCHRISTIANOGIBRAN Room #: [facility]#: [id number] Admission: 06/06/20 Attend Phys: Jorge Martinez MD Discharge: Date of : 51 Report #: [id number] Atrial burst pacing was performed and AV block was noted at 320 milliseconds. With ventricular pacing, there was intermittent VA conduction that was primarily midline, occasionally appeared to be eccentric in nature. However, this was very infrequent and initially I was not sure if potentially I had a pathway. Therefore, isoproterenol infusion was started at 2 mcg per minute. AV block was noted at 300 milliseconds. VA conduction initially appeared to be eccentric but then I noted that ICS had basically fallen out of the CS, I placed it back in and we had nice concentric VA conduction. Aggressive atrial and ventricular pacing maneuvers were performed and I could not induce any SVT. He would have some short bursts of atrial tachycardia lasting 2-3 beats. As such, the patient was prepped for atrial flutter ablation. Next, I exchanged for a ramp sheath and an 8 mm ablation catheter and I placed an ICE catheter in the right atrium. His anatomy was quite rotated and I was able to create a 3D geometry using [employer] of the tricuspid annulus and the cavotricuspid isthmus. The left atrium appeared to be quite rotated. He had a very floppy interatrial septum, appeared that he had two left and two right pulmonary veins. At baseline, the transisthmus conduction time was 55 milliseconds. Next, a continuous drag lesion was performed at 70 miller 60 degrees until I fell into the inferior vena cava. Of note, he did have a small pouch, but I was able to ablate within this region without any issues. This was visualized on intracardiac ultrasound. After I created my first ablation line, there was evidence of bidirectional block with transisthmus conduction time of 150 milliseconds and differential pacing consistent with medial and lateral block along the ablation lesion set. I performed additional ablation within the pouch to ensure the state electrically silent and the procedure was concluded. The patient remained in sinus rhythm with sinus cycle length of 610 milliseconds, ND interval 170 milliseconds, QRS duration 80 milliseconds, QT interval 365 milliseconds. Post-ablation, there was no evidence of pericardial effusion. As such, all catheters and sheaths were pulled. Hemostasis was obtained. The patient awoke neurologically and hemodynamically intact. CONCLUSIONS: 1. Successful atrial flutter ablation with evidence of bidirectional block. 2. Normal SA medina function. 3. Normal AV medina function. 4. Normal His-Purkinje function. 5. No other inducible arrhythmias on or off isoproterenol. By: 1333 1417 Jorge Martinez MD /nt
[2020-06-06 10:14] VITALS: BP 118/81
[2020-06-06 10:24] LABS: ABSOLUTE NEUTROPHILS 7.6 thou/uL (1.4-8.2); BASOPHILS 0.5 % (0.0-2.0); EOSINOPHILS 0.4 % (0.0-3.0); HEMATOCRIT 43.7 % (42.0-52.0); HEMOGLOBIN 14.1 gm/dL (14.0-18.0); LYMPHOCYTES 19.1 % (24.0-44.0); MCH 26.5 pg (26.0-34.0); MCHC 32.3 g/dL (28.0-37.0); MCV 81.9 fL (80.0-100.0); MONOCYTES 7.2 % (1.0-8.0); PLATELET COUNT 421 thou/uL (150-400); POLYS 72.8 % (36.0-66.0); RBC 5.33 mil/uL (4.50-6.00); RDW 17.6 % (10.5-14.5); WBC 10.5 thou/uL (4.0-11.0)
[2020-06-06 10:43] LABS: CALCIUM 8.5 mg/dL (8.5-10.1); CREATININE 1.8 mg/dL (0.7-1.3); POTASSIUM 3.6 mmol/L (3.5-5.1)
[2020-06-06 10:49] LABS: ALBUMIN 3.2 g/dL (3.4-5.0); TOTAL BILIRUBIN 0.3 mg/dL (0.2-1.0); TOTAL PROTEIN 6.8 g/dL (6.4-8.2)
== END | disposition home or self-care (01) ==
LOC: OR 06-01 08:00 → LAB 06-01 08:00 → CATH 06-01 08:00 → LAB 13:57 → CATH 16:25
PROVIDERS: ATTEND Internal Medicine Cardiovascular Disease
DX: I48.92 Unspecified atrial flutter (principal); I42.9 Cardiomyopathy, unspecified; E78.00 Pure hypercholesterolemia, unspecified; M10.9 Gout, unspecified; J44.9 Chronic obstructive pulmonary disease, unspecified; Z11.59 Encounter for screening for other viral diseases; Z98.890 Other specified postprocedural states; Z95.1 Presence of aortocoronary bypass graft; Z79.899 Other long term (current) drug therapy; Z79.01 Long term (current) use of anticoagulants
CPT/HCPCS: 62110; 62900

== ENCOUNTER → 2020-06-08 | Outpatient (CLI) | payer OTHER | END | disposition home or self-care (01) | LOC: LAB 06-06 16:27 | PROVIDERS: ATTEND Pediatrics | DX: Z11.59 Encounter for screening for other viral diseases (principal); I48.92 Unspecified atrial flutter ==

== ENCOUNTER → 2020-06-11 | Outpatient (CLI) | payer OTHER ==
--- NOTE | 2020-06-13 09:09 | SLE ---
[facility] [place] [address] POLYSOMNOGRAPHY STUDY Name: GIBRAN DURANT CAROLYNN Room #: [facility]#: [id number] Admission: 06/11/20 Attend Phys: Tim Potter MD Discharge: Date of : 51 Report #: [id number] THIS REPORT FOR: //name// CC: Tim Johnson MD DATE OF SERVICE: 06/11/2020 SLEEP STUDY ATTENDING PHYSICIAN: Dr. Cole Johnson. The patient is a 64-year-old who weighs 181 pounds with a BMI of 26.7. The patient was diagnosed with severe LOI a year ago at an AHI of 57 per hour. The patient was prescribed CPAP at a pressure of 17 cm of water. However, the patient has been intolerant to CPAP and has persistent hypersomnia. Weatherby score was 13. 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 During the night study, the patient spent 455 minutes in bed and slept for 400 minutes with a sleep efficiency of 88%. Sleep latency was 44.9 minutes with a REM latency of 167 minutes. Sleep architecture showed normal stage 1 sleep, increased stage 2 sleep, absent slow wave and normal REM sleep. EKG monitoring revealed an average heart rate of 64 beats per minute. Occasional PVC seen. No sustained arrhythmias observed. PLMs were seen at an index of 48 per hour and 5 per hour caused EEG arousals. The patient was started on BiPAP at a pressure of 12/8 and titrated up to 19/13. At this final pressure, the patient slept for 58 minutes including 15 minutes of supine REM sleep. The patient's AHI was reduced to 2.1 per hour and oxygen saturation remained above 88%. IMPRESSION: 1. Severe sleep apnea diagnosed by previous sleep study. 2. Moderate to severe PLMs. RECOMMENDATIONS: 1. BiPAP at a pressure of 19/13 completely eliminated the patient's sleep apnea and should be used on a nightly basis. 2. Follow up in 4-6 weeks to assess compliance with BiPAP and to document clinical improvement. 3. If the patient continues to have persistent hypersomnia despite effective use of BiPAP, then consider ruling out other coexisting disorders such as [facility] [address] [place] [address] POLYSOMNOGRAPHY STUDY Name: GIBRAN DURANT Room #: [facility]#: [id number] Admission: 06/11/20 Attend Phys: Tim Potter MD Discharge: Date of : 51 Report #: [id number] narcolepsy or idiopathic hypersomnia. 4. Avoid [employer] depressants. 5. Cautioned regarding driving until symptoms of sleep apnea resolve with the use of BiPAP. 6. The patient should also be further evaluated for symptoms of restless legs during the day. <ELECTRONICALLY SIGNED> By: Tim Potter MD 06/13/20 [id number] Tim Potter MD /yara
== END ==
LOC: EDSTATUS 08:24 → SLEEPLAB 09:21
PROVIDERS: ATTEND Internal Medicine Critical Care Medicine
DX: G47.33 Obstructive sleep apnea (adult) (pediatric) (principal)